=== PATIENT | female | born 1960 | race Caucasian/White ===

== ENCOUNTER 2018-10-30 14:23 | Inpatient (IN) ==
[2018-10-30] MEDS ORDERED: Acetaminophen 325 MG TABLET PO PRN (17:54)
[2018-10-30] MEDS ORDERED: Docusate Oral Soln 100 MG/10 ML UDC PO PRN (17:54)
[2018-10-30] MEDS ORDERED: Ipratropium/Albuterol Neb 3 ML ONE ×2 (18:11→22:59)
[2018-10-30] MEDS ORDERED: Nitroglycerin 0.4 MG TAB.SUBL SL PRN (18:59)
[2018-10-30] MEDS ORDERED: NON-FORMULARY MEDICATION 1 EACH EACH (Oxygen [Oxygen] 0 L) SCH (19:00)
[2018-10-30] MEDS: *HR* OxyCODONE/APAP 7.5/325 TABLET PO PRN (19:22)
--- NOTE | 2018-10-30 21:41 | Internal Med History&Physical ---
Date of Encounter: 10/30/18 Time of Encounter: 21:41 Assessment and Plan (1) Physical deconditioning Current visit: Yes Status: Acute Patient was transferred from [facility] to her facility because of physical deconditioning. She was admitted there with exacerbation of COPD. She was admitted just prior to [place]. She states her functional capacity is basically to the bedside commode is as far she could walk without getting extremely dyspneic. Therapies have been arranged. Diagnoses as below. (2) Acute exacerbation of chronic obstructive airways disease Current visit: Yes Status: Acute Patient has a chronic history of COPD and oxygen dependent. She has had recent exacerbation of COPD and treated with steroids and antibiotics and increase her oxygen and BiPAP. She is now here for therapies to help resume her ADLs and functional capacity. At this time she can only be on her feet far enough distance to get to the bedside commode. The plan will be to increase her acti vity level to the point where she is able to go home. She is maintaining her oxygen levels better now. Continue her current inhalers and nebulizer treatments as recommended by block machine operator. She is on low-dose prednisone 5 mg daily. (3) Chest pain Current visit: Yes Status: Acute Patient had an episode of chest pain at [facility] with negative workup. They did not feel she needed any further intervention or cardiac catheterization. She does relate that with eating she gets a sensation in her epigastric and lower chest area that is relieved with Tums. Not getting a history that this is cardiac. Will follow. Qualifiers: Chest pain type: unspecified Qualified Code(s): R07.9 - Chest pain, unspecified (4) Dental infection Current visit: Yes Status: Acute Patient has had problems with a molar and is in search of a dentist to have this removed. She or her will make the dental appointment. She continues with clindamycin. (5) Hyponatremia Current visit: Yes Status: Acute Mild hyponatremia which is improved. Looking back over her many labs she tends to run slightly hyponatremic. Likely she has reset hyponatremia. Will follow. (6) Leukocytosis Current visit: Yes Status: Acute Mild leukocytosis. Likely from her steroid use. I do not think we need to reculture or use further antibiotics. She could have a smoldering infection from her dental problem as well. Will follow. Qualifiers: Leukocytosis type: unspecified Qualified Code(s): D72.829 - Elevated white blood cell count, unspecified (7) Oral candidiasis Current visit: Yes Status: Acute History of oral candidiasis which now appears to be cleared. She continues with the Chlortrimazole (8) CAD (coronary artery disease) Current visit: Yes Status: Chronic History coronary artery disease. She had an episode of "chest pain" while at [facility] and negative workup with serial troponins. She does not have any recurrences of this. She was seen by cardiology and they did not feel she needed any intervention or catheterization beyond increasing her Imdur to 90 mg. Will follow. Currently no cardiac type symptoms Qualifiers: Coronary Disease-Associated Artery/Lesion type: [place] artery [place] vs. transplanted heart: [place] heart Associated angina: without angina Qualified Code(s): I25.10 - Atherosclerotic heart disease of [place] coronary artery without angina pectoris (9) Diabetes mellitus Current visit: Yes Status: Chronic History of diabetes mellitus. Her sugars were elevated with the IV steroids. Now her sugars are improved. She has had a fairly recent glycohemoglobin of 8.1%. We will continue to monitor with Accu-Cheks and use sliding scale if needed Qualifiers: Diabetes mellitus type: type 2 Diabetes mellitus longterm insulin use: without termite control service representative use Diabetes mellitus complication status: without complication Qualified Code(s): E11.9 - Type 2 diabetes mellitus without complications (10) Hypertension Current visit: Yes Status: Chronic Long-standing history of hypertension. Blood pressure appears be under good control. 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 She does this independently at home and she will have her bring in the infusion cannot to do as planned each week (12) GINA (obstructive sleep apnea) Current visit: Yes Status: Chronic History of sleep apnea and uses BiPAP and oxygen through the night. She uses BiPAP during the day if she becomes dyspneic. (13) Tobacco use Current visit: Yes Status: Chronic Chronically continues to use cigarettes. Her privately told me that she is up to 3 packs per day. She will no tobacco products while here. We will offer nicotine patch. Does not seem to be having withdrawal at the present time (14) DVT prophylaxis Current visit: Yes Status: Acute Because of her decreased mobility we will continue her DVT prophylaxis with [facility] Internal Medicine - H&P: HPI Chief complaint: I am here so I can breathe better before I go home Admitted From: Hospital to Hospital Transfer Plans for Post Hospital Care: Home History of present illness: Ms. Bailey is a 57 year old female with known history of CAD, oxygen dependent COPD and immune deficiency history is transferred to our facility from [facility] having spent about 10 days or more exacerbation of COPD. Patient was admitted there with history of exacerbation of her COPD. She is sputum production also noted placed on IV steroids and antibiotics. She was seen by block machine operator and her medications were adjusted. She has had difficulties with maintaining her ADLs and appropriate oxygen saturation. Her biggest complaint is that she is not able to walk or move more than just a few feet, to the bedside commode, without getting short of breath. Her sputum production has decreased. She has had no fevers or chills. She feels better but not able to go very far and has been basically bedbound. She stays with her BiPAP with oxygen through the night and uses as needed during the daytime. She is oxygen dependent all of the time She had an episode of chest pain was seen by cardiology. No major changes made in her medications. She ruled out. She has had fairly recent cardiac workup. They did not feel that this was significant angina or need further evaluation w ith catheterization. She does not have any ongoing chest pain. She does complain that when she eats she gets a fullness or discomfort in the epigastric lower chest area, but generally with her eating. Tums is helpful. Patient was admitted to rehab for therapy so she can improve her stamina and f unctional capacity before returning to home. Past Med Surg Social Fam HX - Past Medical History Medical history: asthma, COPD, coronary artery disease, diabetes, hyperlipidemia, hypertension, myocardial infarction, other Additional medical history: IGG Psychiatric history: anxiety, depression - Past Surgical History Surgical History: , herniorrhaphy, hysterectomy, knee replacement, other Additional surgical history: heart stents - Social History Smoking Status: Former smoker Smokeless Tobacco Status: No Alcohol use: unknown Drug use: none - Family History Paternal Grandfather Living Status: Hx Family Cardiac Disorders: Yes ([place]) Paternal Grandmother Adopted: No Living Status: Hx Family Cancer: Yes (Lung cancer) Mother Hx Family Cardiac Disorders: Yes (Heart disease and hypertension) Hx Family Cancer: Yes (leukemia, breast cancer) Hx Family Endocrine Disorder: Yes (Diabetes) Father Living Status: Hx Family Cardiac Disorders: Yes Hx Family Respiratory Disorders: Yes Hx Family Cancer: No Hx Family Endocrine Disorder: No Brother Living Status: Hx Family Cancer: Yes (unknown type cancer) Sister Living Status: Hx Family Cardiac Disorders: Yes (Heart disease) Hx Family Respiratory Disorders: Yes (COPD) Hx Family Cancer: Yes (leukemia) Hx Family Endocrine Disorder: Yes ("thyroid problems") Internal Medicine - H&P: Meds Aspirin 81 mg PO HS 07/06/15 [History] Cholecalciferol (Vitamin D3) [Vitamin D] 1,000 unit PO DAILY 07/06/15 [History] Clopidogrel Bisulfate [Plavix] 75 mg PO DAILY 07/06/15 [History] Guaifenesin [Mucinex] 600 mg PO BID 07/06/15 [History] Magnesium Oxide [Magnesium] 400 mg PO BID 07/06/15 [History] Nitroglycerin [Nitrostat] 0.4 mg SL [id number] PRN 07/06/15 [History] Roflumilast [Daliresp] 500 mcg PO HS 07/06/15 [History] Docusate Sodium [Colace] 250 mg PO DAILY PRN 07/11/15 [History] Pantoprazole Sodium [Protonix] 40 mg PO DAILY 07/11/15 [History] OxyCODONE/APAP 7.5/325 [Percocet 7.5/325 MG] 1 tab PO Q6HR PRN 06/11/16 [History] Ranolazine [Ranexa] 500 mg PO BID 06/11/16 [History] Ascorbic Acid [Vitamin C] 500 mg PO BID tablet 06/14/16 [Rx] Acetaminophen [Tylenol] 650 mg PO Q6HR PRN #0 tablet 08/31/16 [Rx] Sertraline [Zoloft] 50 mg PO HS #30 tablet 09/05/16 [Rx] Albuterol Neb [Proventil Neb] 2.5 mg IH Q4HR PRN 05/29/17 [History] Loratadine [Allergy Relief] 10 mg PO DAILY 05/29/17 [History] Niacin (24 HR) [Niaspan] 500 mg PO DAILY 05/29/17 [History] Potassium Chloride [Klor-Con 10] 10 meq PO DAILY 05/29/17 [History] EPINEPHrine [Epipen] 0.3 mg IM ONCE PRN 01/15/18 [History] Ferrous Sulfate 325 mg PO BID 01/15/18 [History] Immune Globulin, Gamma (IGG) [Privigen 10% 10 GM/100 ML] 35 units IJ QWEEK [History] Oxygen 2 - 5 l .ROUTE CONT #1 each 02/03/18 [Rx] Albuterol Sulfate [Ventolin Hfa] 2 puff IH Q4H PRN 07/15/18 [History] Fluticasone Propionate Nasal [Flonase] 2 spr NS DAILY 07/15/18 [History] Gabapentin [Neurontin] 300 mg PO TID 07/15/18 [History] Losartan Potassium [Cozaar] 50 mg PO DAILY 07/15/18 [History] Metformin HCl 1,000 mg PO BID 07/15/18 [History] Metoprolol Succinate [Toprol Xl] 50 mg PO HS 07/15/18 [History] Montelukast [Singulair] 10 mg PO HS 07/15/18 [History] Simvastatin [Zocor] 40 mg PO HS 07/15/18 [History] amLODIPine [Norvasc] 5 mg PO DAILY 07/15/18 [History] glipiZIDE [Glucotrol] 10 mg PO BIDWM 07/15/18 [History] Tiotropium [Spiriva] 1 puff IH DAILY 10/19/18 [History] Budesonide Neb [Pulmicort Neb] 0.5 mg IH BIDR inhsol 10/30/18 [Rx] Clindamycin [Cleocin] 450 mg PO Q8H 4 Days capsule 10/30/18 [Rx] Clotrimazole [Mycelex Faye] 10 mg MM 5XD faye 10/30/18 [Rx] Ipratropium/Albuterol Neb [Duoneb] 3 ml IH [id number] inhsol 10/30/18 [Rx] Isosorbide MONOnitrate (24 HR) [Imdur] 90 mg PO DAILY tab.er.24h 10/30/18 [Rx] Sodium Chloride/Aloe Nasal Gel [Swink Saline Nasal Gel] 1 appl NS Q2H PRN tube 10/30/18 [Rx] Theophylline Anhydrous [Theodur] 300 mg PO BID tab.er.12h 10/30/18 [Rx] predniSONE [PredniSONE] 5 mg PO DAILY 30 Days #30 tablet 10/30/18 [Rx] Allergy/AdvReac Type Severity Reaction Status Date / Time Penicillins Allergy Difficulty Verified 07/15/18 10:41 Breathing Sulfa (Sulfonamide Allergy Difficulty Verified 07/15/18 10:41 Antibiotics) Breathing sulfamethoxazole Allergy Difficulty Verified 07/15/18 10:41 [From Bactrim] Breathing trimethoprim [From Bactrim] Allergy Difficulty Verified 07/15/18 10:41 Breathing furosemide [From Lasix] AdvReac Dizziness Verified 07/15/18 10:41 - Constitutional Constitutional: weakness (Generalized weakness and dyspnea), no chills, no fever(s), no falls - EENT Eyes: no blurry vision Ears: no ear discharge, no ear pain Additional comments: She complains of a bad lower molar that she thinks needs pulled. She has had a sore throat. She has a history of having had an now being treated for oral candidiasis. She thinks it is under control. - Breasts Breasts: no pain - Cardiovascular Cardiovascular ROS IM: dyspnea, dyspnea on exertion (She states she gets short of breath going to the bedside commode.), no chest pain, no irregular heart rhythm, no palpitations, no syncope - Respiratory Respiratory: cough, dyspnea, dyspnea on exertion (She says she gets short of breath going to the bedside commode), wheezing, change in phlegm color - Gastrointestinal Additional comments: Patient has epigastric pain particularly after she has eaten. She "feels full" then she gets pain. She denies any "heartburn" in the chest or any reflux per se. - Genitourinary Genitourinary: no dysuria, no urinary incontinence, no urinary urgency, no vaginal discharge Menstruation: post menopausal - Musculoskeletal Musculoskeletal ROS IM: no back pain, no muscle weakness, no neck pain - Integumentary Additional comments: Multiple bruises on her abdomen as well as her arms - Neurological Neurological ROS: weakness (Generalized weakness and dyspnea.), no confusion, no focal weakness, no vertigo - Psychiatric Psychiatric: abnormal sleep pattern (She states she has a hard time going to sleep. She think she has tried Benadryl and melatonin.), no anxiety, no difficulty concentrating - Constitutional Vitals: Temp Pulse Resp BP Pulse Ox 97.7 F 87 19 131/69 91 10/30/18 19:45 10/30/18 19:45 10/30/18 19:45 10/30/18 19:45 10/30/18 19:45 General appearance: Present: A&O X 3, no acute distress, answers questions appropriately - ENT ENT exam: Present: mucous membranes moist, normal oropharynx (No shun or redness), TM's normal bilaterally Additional comments: She is missing some of her teeth. She has a tobacco stained lower molar that has a filling - Neck Neck exam general surgery: Absent: tenderness, nuchal rigidity, thyromegaly - Respiratory Additional comments: Markedly diminished breath sounds posteriorly but clear. Anteriorly mild end- expiratory wheeze. No crackles or rhonchi. No respiratory distress. She is wearing oxygen at 5 L per nasal cannula and using it orally - Cardiovascular Cardiovascular exam: Present: RRR, +S1, +S2, systolic murmur (1/6 systolic murmur) - GI/Abdominal GI/Abdominal exam: Present: soft. Absent: hepatomegaly, mass, pulsatile mass, tenderness Additional comments: Multiple bruises and Band-Aids on her abdomen from her Lovenox - Extremities Exam Extremities exam: Present: warm. Absent: calf tenderness, mottling, pedal edema, tenderness - Neurological Exam Neurological exam: Present: alert, oriented X3, no focal deficits - Psychiatric Psychiatric exam: Present: normal affect, normal mood - Skin Additional comments: Multiple areas of bruises particularly on her forearms as well as abdomen Internal Med - H&P Results - Labs CBC & Chem 7: 10/31/18 05:45
[2018-10-30] MEDS ORDERED: Dextrose Gel 15 GM/37.5 ML TUBE PO PRN ×2 (22:14)
[2018-10-30] MEDS ORDERED: D5% in Water 1,000 ML IVC PRN (22:14)
[2018-10-30] MEDS ORDERED: *HR* Dextrose 50 % in Water (Syg) 50 ML SYRINGE IVP PRN (22:14)
[2018-10-30] MEDS: Ipratropium/Albuterol Neb 3 ML IH SCH (23:00)
[2018-10-30] MEDS: Aspirin 81 MG TAB.CHEW PO SCH (23:42)
[2018-10-30] MEDS: Gabapentin 300 MG CAPSULE PO SCH (23:43)
[2018-10-30] MEDS: Magnesium Oxide 400 MG TABLET PO SCH (23:44)
[2018-10-30] MEDS: Ascorbic Acid 500 MG TABLET PO SCH (23:46)
[2018-10-30] MEDS: Metoprolol XL (24 HR) Succ 50 MG TAB.ER.24H PO SCH (23:46)
[2018-10-30] MEDS: Melatonin 3 MG TABLET PO PRN (23:46)
[2018-10-30] MEDS: Budesonide Neb 0.5 MG/2 ML IH SCH (23:49)
[2018-10-30] MEDS: *HR* Metformin 500 MG TABLET PO SCH (23:55)
[2018-10-31] MEDS ORDERED: Albuterol 2.5 MG/3 ML NEBULIZER IH PRN
[2018-10-31] MEDS: *HR* Enoxaparin 40 MG/0.4 ML SYRINGE SQ SCH (05:16)
[2018-10-31] MEDS: *HR* OxyCODONE/APAP 7.5/325 TABLET PO PRN ×3 (05:16→22:07)
[2018-10-31] MEDS: Ipratropium/Albuterol Neb 3 ML IH SCH ×4 (05:16→22:00)
[2018-10-31 06:27] LABS: BUN/Creatinine Ratio 16 (6-26); Blood Urea Nitrogen 10 mg/dL (6-20); Calcium 9.6 mg/dL (8.6-10.3); Carbon Dioxide 36 mEq/L (23-29); Chloride 91 mEq/L (98-107); Glucose 158 mg/dL (70-105); Osmolality,Calculated 274 (280-300); Potassium 3.7 mEq/L (3.5-5.1); Sodium 131 mEq/L (136-145); eGFR For Non-African Americans > 60 (> 60)
[2018-10-31] MEDS: Insulin LISPRO 300 UNITS/3 ML VIAL SQ SCH ×3 (08:25→16:38)
[2018-10-31] MEDS: Gabapentin 300 MG CAPSULE PO SCH ×3 (08:28→21:57)
[2018-10-31] MEDS: Niacin (24 HR) 500 MG TAB.ER.24H PO SCH (08:29)
[2018-10-31] MEDS: Ascorbic Acid 500 MG TABLET PO SCH ×2 (08:29→21:59)
[2018-10-31] MEDS: Isosorbide MONOnitrate (24 HR) 60 MG TAB.ER.24H PO SCH (08:29)
[2018-10-31] MEDS: *HR* GlipiZIDE 5 MG TABLET PO SCH ×2 (08:29→16:08)
[2018-10-31] MEDS: Cholecalciferol (D-3) 1,000 UNIT TABLET PO SCH (08:29)
[2018-10-31] MEDS: Loratadine 10 MG TABLET PO SCH (08:30)
[2018-10-31] MEDS: amLODIPine 5 MG TABLET PO SCH (08:30)
[2018-10-31] MEDS: predniSONE 5 MG TABLET PO SCH (08:30)
[2018-10-31] MEDS: *HR* Metformin 500 MG TABLET PO SCH ×2 (08:30→21:57)
[2018-10-31] MEDS: Magnesium Oxide 400 MG TABLET PO SCH ×2 (08:30→21:57)
[2018-10-31] MEDS: Budesonide Neb 0.5 MG/2 ML IH SCH ×2 (09:23→23:19)
--- NOTE | 2018-10-31 11:44 | Internal Med Progress Note ---
Date of Encounter: 10/31/18 Time of Encounter: 11:43 - Assessment and plan (1) Physical deconditioning Current Visit: Yes Status: Acute Assessment and plan: She has shown dramatic improvement in her functionality and ADLs. She has walked in the hallway and taking a shower. She requires higher oxygen concentration and frequent resting. Continue with her therapies. (2) Acute exacerbation of chronic obstructive airways disease Current Visit: Yes Status: Acute Assessment and plan: Continues to show improvement. Some rhonchi noted today. We will add Mucomyst. Overall improved (3) Chest pain Current Visit: Yes Status: Acute Assessment and plan: She gets a chest sensation when she eats, Tums is helpful. Doubt this is cardiac. Will follow. Qualifiers: Chest pain type: unspecified Qualified Code(s): R07.9 - Chest pain, unspecified (4) Dental infection Current Visit: Yes Status: Acute Assessment and plan: I spoke with her about getting her appointment with a local dentist to check about pulling her tooth appears to be painful possibly infected. She continues with her clindamycin. (5) Hyponatremia Current Visit: Yes Status: Acute Assessment and plan: Hyponatremia improved. We will follow. (6) Leukocytosis Current Visit: Yes Status: Acute Assessment and plan: Leukocytosis which is likely from her steroids. Will follow. No fever. Qualifiers: Leukocytosis type: unspecified Qualified Code(s): D72.829 - Elevated white blood cell count, unspecified (7) Oral candidiasis Current Visit: Yes Status: Acute Assessment and plan: No recurrence of oral candidiasis. (8) CAD (coronary artery disease) Current Visit: Yes Status: Chronic Assessment and plan: History of known CAD. No cardiac type chest pain. She was seen by cardiology at [place] and Imdur was increased. We will monitor how she does with increasing her activity level Qualifiers: Coronary Disease-Associated Artery/Lesion type: [place] artery [place] vs. transplanted heart: [place] heart Associated angina: without angina Qualified Code(s): I25.10 - Atherosclerotic heart disease of [place] coronary artery without angina pectoris (9) Diabetes mellitus Current Visit: Yes Status: Chronic Assessment and plan: Sugars are under reasonable control considering her prednisone use. Continue to monitor. Qualifiers: Diabetes mellitus type: type 2 Diabetes mellitus terminal gauger supervisor insulin use: without senior living use Diabetes mellitus complication status: without complication Qualified Code(s): E11.9 - Type 2 diabetes mellitus without complications (10) Hypertension Current Visit: Yes Status: Chronic Assessment and plan: Blood pressure is under good control. 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 She has walked in the hallway this morning, as taking a shower, and tolerating it better than she had expected. Still has some minor sputum production. No fever or chills. No cardiac type anginal chest pain. Still requires her BiPAP intermittently during the day. She says she was on "that makes smelling stuff" in her nebulizer treatments. Linda from respiratory and I discussed starting Mucomyst again - Constitutional Vitals: Temp Pulse Resp BP Pulse Ox 97.7 F 83 18 115/73 93 10/31/18 11:00 10/31/18 11:00 10/31/18 11:00 10/31/18 11:00 10/31/18 11:00 General appearance: Present: A&O X 3, no acute distress, answers questions appropriately - Respiratory Additional comments: Rhonchi noted posteriorly as well as anteriorly. Expiratory wheezes anteriorly. No respiratory distress. Saturations are appropriate with 5 L. - Cardiovascular Cardiovascular exam: Present: RRR, +S1, +S2, systolic murmur (1/6 systolic murmur) - Extremities Exam Extremities exam: Absent: calf tenderness, pedal edema, tenderness Internal Medicine: Result - Labs CBC & Chem 7: 10/31/18 05:45 Labs: BMP 10/31/18 05:45 Sodium 131 L Potassium 3.7 Chloride 91 L Carbon Dioxide 36 H BUN 10 Creatinine 0.61 Glucose 158 H Calcium 9.6 Labs have been reviewed. Sodium improved to 131. Chronically she has hyponatremia. Sugars are under relatively good control. Consult Discharge Plan - Plan Referrals: James Rushing MD [Primary Care Provider] -
[2018-10-31] MEDS: Ranolazine 500 MG TAB.ER.12H PO SCH ×3 (12:35→22:53)
[2018-10-31] MEDS: Acetylcysteine 10% 2 ML INHSOL IH SCH ×2 (16:00→22:00)
[2018-10-31] MEDS: Aspirin 81 MG TAB.CHEW PO SCH (21:57)
[2018-10-31] MEDS: (Roflumilast [Daliresp] 500 MCG) PO SCH ×2 (21:58)
[2018-10-31] MEDS: Metoprolol XL (24 HR) Succ 50 MG TAB.ER.24H PO SCH (21:58)
[2018-10-31] MEDS: Melatonin 3 MG TABLET PO PRN (23:18)
[2018-11-01] MEDS: Ipratropium/Albuterol Neb 3 ML IH SCH ×4 (06:07→20:47)
[2018-11-01] MEDS: Acetylcysteine 10% 2 ML INHSOL IH SCH ×3 (06:08→20:47)
[2018-11-01] MEDS: *HR* Enoxaparin 40 MG/0.4 ML SYRINGE SQ SCH (06:08)
[2018-11-01] MEDS: *HR* OxyCODONE/APAP 7.5/325 TABLET PO PRN ×2 (06:08→17:32)
--- NOTE | 2018-11-01 07:11 | Internal Med Progress Note ---
Date of Encounter: 11/01/18 Time of Encounter: 07:06 - Assessment and plan (1) Physical deconditioning Current Visit: Yes Status: Acute Assessment and plan: She continues to improve her function and stamina. Continue with her therapies. (2) Acute exacerbation of chronic obstructive airways disease Current Visit: Yes Status: Acute Assessment and plan: Her COPD exacerbation is improving. She is able to exert herself more and havi ng less difficulties. Her saturations still drop into the low 80s when she moves too much. Has good recovery to the 90s. Continues with BiPAP at night with oxygen. Continues BiPAP during the day if needed. Small amount of sputum production. She thinks the Mucomyst has been helpful and we will continue. Continue with her nebulizer and MDIs, oxygen and prednisone 5 mg (3) Chest pain Current Visit: Yes Status: Acute Assessment and plan: She still has a discomfort in her chest when she eats. It does not happen with exertion. Tums is helpful. This likely GI etiology. If continues will need to consider upper GI evaluation but no red flags such as melena, hematochezia, anemia, nausea vomiting etc. Qualifiers: Chest pain type: unspecified Qualified Code(s): R07.9 - Chest pain, unspecified (4) Dental infection Current Visit: Yes Status: Acute Assessment and plan: She has an appointment with Dr. Lee for next Sunday for dental e valuation. We will see whether she is able to get to that appointment or not. Continues with clindamycin (5) Hyponatremia Current Visit: Yes Status: Acute Assessment and plan: Mild hyponatremia now improved. We will follow. (6) Leukocytosis Current Visit: Yes Status: Acute Assessment and plan: History mild leukocytosis likely from her steroids. Will follow. Qualifiers: Leukocytosis type: unspecified Qualified Code(s): D72.829 - Elevated white blood cell count, unspecified (7) Oral candidiasis Current Visit: Yes Status: Acute Assessment and plan: No recurrence of her oral candidiasis. She continues with her Chlortrimazole. (8) CAD (coronary artery disease) Current Visit: Yes Status: Chronic Assessment and plan: Known history of CAD without angina or CHF currently. Qualifiers: Coronary Disease-Associated Artery/Lesion type: [place] artery [place] vs. transplanted heart: [place] heart Associated angina: without angina Qualified Code(s): I25.10 - Atherosclerotic heart disease of [place] coronary artery without angina pectoris (9) Diabetes mellitus Current Visit: Yes Status: Chronic Assessment and plan: Sugars are under reasonable control. We will use sliding scale if elevated. Qualifiers: Diabetes mellitus type: type 2 Diabetes mellitus prison insulin use: without prison use Diabetes mellitus complication status: without complication Qualified Code(s): E11.9 - Type 2 diabetes mellitus without complications (10) Hypertension Current Visit: Yes Status: Chronic Assessment and plan: Blood pressure is under good control. 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 (12) GINA (obstructive sleep apnea) Current Visit: Yes Status: Chronic Assessment and plan: Continues with her BiPAP with oxygen at nighttime, during the day as needed (13) Tobacco use Current Visit: Yes Status: Chronic (14) DVT prophylaxis Current Visit: Yes Status: Acute Assessment and plan: Continues with Lovenox for DVT prophylaxis because of her decreased activity level - Subjective Interval history: Patient feels that she is getting better. She ambulated in the hallway in the morning yesterday, took a shower, and then continue with ambulation and therapy walking to the therapy unit and back. She denies a cardiac type chest pain with exertion. She still has a sensation in the epigastric and lower chest area when she eats, Tums is helpful for this. No melena or hematochezia. No nausea or vomiting. She still has some sputum production which is yellowish at times. She uses her BiPAP and oxygen at nighttime, needs it during the day intermittently. Appetite has been good. Bowels have been moving. She is working on increasing her endurance - Constitutional Vitals: Temp Pulse Resp BP Pulse Ox 98.4 F 77 16 135/77 93 10/31/18 23:44 10/31/18 23:44 10/31/18 23:44 10/31/18 23:44 10/31/18 23:44 General appearance: Present: A&O X 3, no acute distress, answers questions appr opriately - Respiratory Additional comments: Decreased breath sounds throughout, a few rhonchi are heard anteriorly, partially clears with cough. No obvious wheezing heard this morning. Sitting upright in bed wearing her oxygen and in no respiratory distress. Able to talk without dyspnea. - Cardiovascular Cardiovascular exam: Present: RRR, +S1, +S2, systolic murmur (1/6 systolic murmur at the left sternal border) - GI/Abdominal GI/Abdominal exam: Present: soft. Absent: tenderness - Extremities Exam Extremities exam: Absent: calf tenderness, pedal edema, tenderness Internal Medicine: Result - Labs CBC & Chem 7: 10/31/18 05:45 Consult Discharge Plan - Plan Referrals: James Rushing MD [Primary Care Provider] -
[2018-11-01] MEDS: Insulin LISPRO 300 UNITS/3 ML VIAL SQ SCH ×3 (08:55→17:29)
[2018-11-01] MEDS: Gabapentin 300 MG CAPSULE PO SCH ×3 (09:07→20:05)
[2018-11-01] MEDS: Ranolazine 500 MG TAB.ER.12H PO SCH ×2 (09:09→20:06)
[2018-11-01] MEDS: *HR* Metformin 500 MG TABLET PO SCH ×2 (09:10→20:05)
[2018-11-01] MEDS: Cholecalciferol (D-3) 1,000 UNIT TABLET PO SCH (09:10)
[2018-11-01] MEDS: amLODIPine 5 MG TABLET PO SCH (09:10)
[2018-11-01] MEDS: Magnesium Oxide 400 MG TABLET PO SCH ×2 (09:10→20:06)
[2018-11-01] MEDS: predniSONE 5 MG TABLET PO SCH (09:11)
[2018-11-01] MEDS: Ascorbic Acid 500 MG TABLET PO SCH ×2 (09:11→20:06)
[2018-11-01] MEDS: Niacin (24 HR) 500 MG TAB.ER.24H PO SCH (09:11)
[2018-11-01] MEDS: Loratadine 10 MG TABLET PO SCH (09:11)
[2018-11-01] MEDS: *HR* GlipiZIDE 5 MG TABLET PO SCH ×2 (09:12→15:49)
[2018-11-01] MEDS: Isosorbide MONOnitrate (24 HR) 60 MG TAB.ER.24H PO SCH (09:12)
[2018-11-01] MEDS: Budesonide Neb 0.5 MG/2 ML IH SCH ×2 (11:00→21:29)
[2018-11-01] MEDS: (Roflumilast [Daliresp] 500 MCG) PO SCH (19:47)
[2018-11-01] MEDS: Aspirin 81 MG TAB.CHEW PO SCH (20:06)
[2018-11-01] MEDS: Metoprolol XL (24 HR) Succ 50 MG TAB.ER.24H PO SCH (20:06)
[2018-11-01] MEDS: Melatonin 3 MG TABLET PO PRN (20:46)
[2018-11-02] MEDS: *HR* Enoxaparin 40 MG/0.4 ML SYRINGE SQ SCH (06:18)
[2018-11-02] MEDS: Acetylcysteine 10% 2 ML INHSOL IH SCH ×2 (06:19→16:15)
[2018-11-02] MEDS: Ipratropium/Albuterol Neb 3 ML IH SCH ×4 (06:19→22:12)
[2018-11-02] MEDS: *HR* GlipiZIDE 5 MG TABLET PO SCH ×2 (08:31→17:09)
[2018-11-02] MEDS: Insulin LISPRO 300 UNITS/3 ML VIAL SQ SCH ×3 (08:31→17:12)
[2018-11-02] MEDS: *HR* Metformin 500 MG TABLET PO SCH ×2 (08:32→22:17)
[2018-11-02] MEDS: Loratadine 10 MG TABLET PO SCH (08:32)
[2018-11-02] MEDS: Isosorbide MONOnitrate (24 HR) 60 MG TAB.ER.24H PO SCH (08:32)
[2018-11-02] MEDS: Gabapentin 300 MG CAPSULE PO SCH ×3 (08:32→22:19)
[2018-11-02] MEDS: Magnesium Oxide 400 MG TABLET PO SCH ×2 (08:32→22:18)
[2018-11-02] MEDS: amLODIPine 5 MG TABLET PO SCH (08:33)
[2018-11-02] MEDS: Niacin (24 HR) 500 MG TAB.ER.24H PO SCH (08:33)
[2018-11-02] MEDS: Ascorbic Acid 500 MG TABLET PO SCH ×2 (08:33→22:16)
[2018-11-02] MEDS: Ranolazine 500 MG TAB.ER.12H PO SCH ×2 (08:33→22:16)
[2018-11-02] MEDS: Cholecalciferol (D-3) 1,000 UNIT TABLET PO SCH (08:33)
[2018-11-02] MEDS: predniSONE 5 MG TABLET PO SCH (08:33)
[2018-11-02] MEDS: *HR* OxyCODONE/APAP 7.5/325 TABLET PO PRN ×2 (08:34→15:18)
[2018-11-02] MEDS: Budesonide Neb 0.5 MG/2 ML IH SCH ×2 (09:16→22:18)
--- NOTE | 2018-11-02 13:16 | Internal Med Progress Note ---
Date of Encounter: 11/02/18 Time of Encounter: 13:13 - Assessment and plan (1) Hospital-acquired pneumonia Current Visit: No Status: Resolved Assessment and plan: This is improved but has left her weak and with respiratory insufficiency on her chronic lung disease. Hopefully, this will continue to improve and she will strengthen, with time. (2) Coronary artery disease Current Visit: No Status: Chronic Assessment and plan: This is clinically stable without signs or symptoms, currently. Qualifiers: Coronary Disease-Associated Artery/Lesion type: [place] artery [place] vs. transplanted heart: [place] heart Associated angina: without angina Qualified Code(s): I25.10 - Atherosclerotic heart disease of [place] coronary artery without angina pectoris (3) Immunodeficiency Current Visit: No Status: Chronic Assessment and plan: This is currently stable and the patient is due for another immunoglobulin injection which she will do on her own, in about 2 days. (4) Hypertension Current Visit: Yes Status: Chronic Assessment and plan: Clinically stable and adequately controlled. Qualifiers: Hypertension type: essential hypertension Qualified Code(s): I10 - Essential (primary) hypertension (5) Sleep apnea Current Visit: No Status: Chronic Assessment and plan: Treated with BiPAP per home settings. She also occasionally uses this as needed for dyspnea during the day but has not had to use the unit today, at all. Qualifiers: Sleep apnea type: obstructive Qualified Code(s): G47.33 - Obstructive sleep apnea (adult) (pediatric) (6) Thrush of mouth and esophagus Current Visit: No Status: Acute Assessment and plan: Because of her esophageal symptoms, we will resume Mycelex troches and add Diflucan for 3 days. She is fine with this plan. (7) Diabetes mellitus Current Visit: Yes Status: Chronic Assessment and plan: Clinically stable and will continue to follow. Qualifiers: Diabetes mellitus type: type 2 Diabetes mellitus mcfp insulin use: without mcfp use Diabetes mellitus complication status: without complication Qualified Code(s): E11.9 - Type 2 diabetes mellitus without complications (8) Leukocytosis Current Visit: Yes Status: Acute Assessment and plan: This is attributed to steroids. Will recheck in a couple of days. Qualifiers: Leukocytosis type: unspecified Qualified Code(s): D72.829 - Elevated white blood cell count, unspecified - Subjective Interval history: Patient is not concerned about her progress. Contralaterally, she feels like she is progressing well. She has a higher level of oxygen than she uses at home. She states that she uses 1.5-2.5 L/m by nasal cannula, at home. However, she is on 5 L/m here. She would like to see the spleen but she desaturates with activity. Bowels and bladder are moving well. She has no other acute issues. She does have problems with heartburn with each meal. She would like to have her PPI earlier in the morning and I mentioned the possibility of candidal esophagitis. Because of recurrent throat symptoms, her Mycelex troches were resumed last night. Will also treat with Diflucan and I discussed this with her. Patient has no complaint of chest discomfort, dyspnea, orthopnea, palpitations, nausea or vomiting, constipation or diarrhea, other changes in bowel habits, difficulty with urination, rash or itching, or other new complaints, except as mentioned above. Review of systems is otherwise negative. I discussed management of her care with nursing staff. - Constitutional Vitals: Temp Pulse Resp BP Pulse Ox 97.6 F 72 17 120/71 97 11/02/18 07:27 11/02/18 07:27 11/02/18 07:27 11/02/18 07:27 11/02/18 07:27 Exam: Examination: (Except as mentioned above): General: In no apparent distress. Alert and oriented 3. Nondiaphoretic. Mouth: She has minimal changes on the posterior tongue consistent with thrush. However, none on throat, etc. She has complete upper and lower dentures. Head: Atraumatic and normocephalic. Respiratory: No use of accessory muscles. Lungs are clear throughout. Normal airflow. Cardiovascular: Regular rate and rhythm without murmur appreciated. Abdomen: Bowel sounds are normal. No hepatosplenomegaly mass or tenderness appreciated. Obese and therefore difficult to palpate deeply. Patient is examined upright in chair and this also limits exam. Extremities: No cyanosis clubbing or edema. Skin: Warm and non-diaphoretic with no new lesions noted. She has rather marked ecchymoses at the dorsal surface of her left forearm. Lesions. Internal Medicine: Result - Labs CBC & Chem 7: 10/31/18 05:45 Consult Discharge Plan - Plan Referrals: James Rushing MD [Primary Care Provider] -
[2018-11-02] MEDS: Fluconazole 100 MG TABLET PO SCH (15:19)
[2018-11-02] MEDS: Aspirin 81 MG TAB.CHEW PO SCH (22:17)
[2018-11-02] MEDS: Melatonin 3 MG TABLET PO PRN (22:17)
[2018-11-02] MEDS: Metoprolol XL (24 HR) Succ 50 MG TAB.ER.24H PO SCH (22:18)
[2018-11-02] MEDS: (Roflumilast [Daliresp] 500 MCG) PO SCH (22:20)
[2018-11-03] MEDS: Acetylcysteine 10% 2 ML INHSOL IH SCH ×4 (01:18→23:43)
[2018-11-03] MEDS: *HR* OxyCODONE/APAP 7.5/325 TABLET PO PRN ×3 (03:00→18:08)
[2018-11-03] MEDS: Ipratropium/Albuterol Neb 3 ML IH SCH ×4 (04:07→20:21)
[2018-11-03] MEDS: *HR* Enoxaparin 40 MG/0.4 ML SYRINGE SQ SCH (05:24)
[2018-11-03] MEDS: Niacin (24 HR) 500 MG TAB.ER.24H PO SCH (08:20)
[2018-11-03] MEDS: Cholecalciferol (D-3) 1,000 UNIT TABLET PO SCH (08:20)
[2018-11-03] MEDS: *HR* GlipiZIDE 5 MG TABLET PO SCH ×2 (08:20→17:52)
[2018-11-03] MEDS: predniSONE 5 MG TABLET PO SCH (08:21)
[2018-11-03] MEDS: Gabapentin 300 MG CAPSULE PO SCH ×3 (08:21→20:26)
[2018-11-03] MEDS: Isosorbide MONOnitrate (24 HR) 60 MG TAB.ER.24H PO SCH (08:21)
[2018-11-03] MEDS: Loratadine 10 MG TABLET PO SCH (08:21)
[2018-11-03] MEDS: Magnesium Oxide 400 MG TABLET PO SCH ×2 (08:21→20:25)
[2018-11-03] MEDS: Ascorbic Acid 500 MG TABLET PO SCH ×2 (08:22→20:24)
[2018-11-03] MEDS: Insulin LISPRO 300 UNITS/3 ML VIAL SQ SCH ×2 (08:22→17:53)
[2018-11-03] MEDS: *HR* Metformin 500 MG TABLET PO SCH ×2 (08:22→20:28)
[2018-11-03] MEDS: amLODIPine 5 MG TABLET PO SCH (08:22)
[2018-11-03] MEDS: Fluconazole 100 MG TABLET PO SCH (08:22)
[2018-11-03] MEDS: Ranolazine 500 MG TAB.ER.12H PO SCH ×2 (08:25→20:24)
[2018-11-03] MEDS: Fluticasone Propionate Nasal 50 MCG/SPRAY BOTTLE NS SCH ×2 (08:25→10:01)
[2018-11-03] MEDS: Budesonide Neb 0.5 MG/2 ML IH SCH ×2 (09:23→20:27)
--- NOTE | 2018-11-03 17:21 | Internal Med Progress Note ---
Date of Encounter: 11/03/18 Time of Encounter: 15:30 - Assessment and plan (1) Hospital-acquired pneumonia Current Visit: No Status: Resolved Assessment and plan: We will continue supportive care and try to wean oxygen as she improves, symptomatically. (2) Coronary artery disease Current Visit: No Status: Chronic Assessment and plan: No current findings, symptoms, or signs. Qualifiers: Coronary Disease-Associated Artery/Lesion type: [place] artery [place] vs. transplanted heart: [place] heart Associated angina: without angina Qualified Code(s): I25.10 - Atherosclerotic heart disease of [place] coronary artery without angina pectoris (3) Immunodeficiency Current Visit: No Status: Chronic Assessment and plan: Currently stable and will defer to patient and primary care physician for continued treatment. (4) Hypertension Current Visit: Yes Status: Chronic Assessment and plan: Controlled. Qualifiers: Hypertension type: essential hypertension Qualified Code(s): I10 - E ssential (primary) hypertension (5) Sleep apnea Current Visit: No Status: Chronic Assessment and plan: Controlled with BiPAP per home settings. Qualifiers: Sleep apnea type: obstructive Qualified Code(s): G47.33 - Obstructive sleep apnea (adult) (pediatric) (6) Thrush of mouth and esophagus Current Visit: No Status: Acute Assessment and plan: She is receiving Mycelex troches as well as 3 days of Diflucan oral. Hopefully, this will take care of any thrush causing esophageal swallowing symptoms. (7) Diabetes mellitus Current Visit: Yes Status: Chronic Assessment and plan: Clinically stable and will continue current regimen and sliding-scale insulin. Qualifiers: Diabetes mellitus type: type 2 Diabetes mellitus longterm insulin use: without intermodal dispatcher use Diabetes mellitus complication status: without complication Qualified Code(s): E11.9 - Type 2 diabetes mellitus without complications (8) Leukocytosis Current Visit: Yes Status: Acute Assessment and plan: To be rechecked, tomorrow. Qualifiers: Leukocytosis type: unspecified Qualified Code(s): D72.829 - Elevated white blood cell count, unspecified - Subjective Interval history: The patient is feeling like she is continuing to progress. She is less short of breath with exertion although this persists. She has no cough or dyspnea at rest. She feels that she is pleased with therapy progress, as well. Patient has no complaint of chest discomfort, dyspnea, orthopnea, palpitations, nausea or vomiting, constipation or diarrhea, other changes in bowel habits, difficulty with urination, rash or itching, or other new complaints, except as mentioned above. Review of systems is otherwise negative. I discussed management of her care with nursing staff. - Constitutional Vitals: Temp Pulse Resp BP Pulse Ox 97.5 F L 76 19 126/83 90 11/03/18 09:16 11/03/18 09:16 11/03/18 15:56 11/03/18 09:16 11/03/18 15:56 Exam: Examination: (Except as mentioned above): General: In no apparent distress. Alert and oriented 3. Nondiaphoretic. Head: Atraumatic and normocephalic. Respiratory: No use of accessory muscles. Lungs are almost totally clear throughout. She has an occasional and expiratory wheeze. Normal airflow. Cardiovascular: Regular rate and rhythm without murmur appreciated. Abdomen: Bowel sounds are normal. No hepatosplenomegaly mass or tenderness appreciated. Obese and therefore difficult to palpate deeply. Extremities: No cyanosis clubbing or edema. Skin: Warm and non-diaphoretic with no new lesions noted. Internal Medicine: Result - Labs CBC & Chem 7: 10/31/18 05:45 Consult Discharge Plan - Plan Referrals: James Rushing MD [Primary Care Provider] -
[2018-11-03] MEDS: Metoprolol XL (24 HR) Succ 50 MG TAB.ER.24H PO SCH (20:26)
[2018-11-03] MEDS: Melatonin 3 MG TABLET PO PRN (20:27)
[2018-11-03] MEDS: Aspirin 81 MG TAB.CHEW PO SCH (20:27)
[2018-11-03] MEDS: (Roflumilast [Daliresp] 500 MCG) PO SCH (20:28)
[2018-11-04] MEDS: *HR* OxyCODONE/APAP 7.5/325 TABLET PO PRN ×4 (00:05→20:53)
[2018-11-04] MEDS: Ipratropium/Albuterol Neb 3 ML IH SCH ×4 (06:30→20:54)
[2018-11-04] MEDS: Acetylcysteine 10% 2 ML INHSOL IH SCH ×3 (06:30→20:55)
[2018-11-04] MEDS: *HR* Enoxaparin 40 MG/0.4 ML SYRINGE SQ SCH (06:35)
--- NOTE | 2018-11-04 07:16 | Internal Med Progress Note ---
Date of Encounter: 11/04/18 Time of Encounter: 07:04 - Assessment and plan (1) Physical deconditioning Current Visit: Yes Status: Acute Assessment and plan: She is showing improvement in her functional capacity and less respiratory symptoms. Continue with her therapies. (2) Acute exacerbation of chronic obstructive airways disease Current Visit: Yes Status: Acute Assessment and plan: Continues to improve for a pulmonary point of view. Low dose prednisone. Continues with aggressive aerosol and MDI treatments. Still requiring 5 L of oxygen per nasal cannula to maintain saturations in the low 90s. Not requiring BiPAP during the day. (3) Chest pain Current Visit: Yes Status: Acute Assessment and plan: No cardiac type chest pain. Her reflux symptoms/GERD symptoms are much improved with resuming the Chlortrimazole troches and starting Diflucan Qualifiers: Chest pain type: unspecified Qualified Code(s): R07.9 - Chest pain, unspecified (4) Dental infection Current Visit: Yes Status: Acute (5) Hyponatremia Current Visit: Yes Status: Acute Assessment and plan: Improved and we will recheck this week. (6) Leukocytosis Current Visit: Yes Status: Acute Qualifiers: Leukocytosis type: unspecified Qualified Code(s): D72.829 - Elevated white blood cell count, unspecified (7) Oral candidiasis Current Visit: Yes Status: Acute Assessment and plan: No oral candidiasis reported now, but likely esophageal candidiasis with pain with eating. Improved with the Chlortrimazole troches and starting Diflucan. Discussed indications for EGD when she is more physically stable. (8) CAD (coronary artery disease) Current Visit: Yes Status: Chronic Assessment and plan: No angina or CHF noted. Qualifiers: Coronary Disease-Associated Artery/Lesion type: [place] artery [place] vs. transplanted heart: [place] heart Associated angina: without angina Qualified Code(s): I25.10 - Atherosclerotic heart disease of [place] coronary artery without angina pectoris (9) Diabetes mellitus Current Visit: Yes Status: Chronic Assessment and plan: Sugars are under good control and her Accu-Cheks have been decreased to twice a day. 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 (12) GINA (obstructive sleep apnea) Current Visit: Yes Status: Chronic (13) Tobacco use Current Visit: Yes Status: Chronic (14) DVT prophylaxis Current Visit: Yes Status: Acute - Subjective Interval history: Patient thinks that she is getting better, but slowly. Still requiring 5 L per nasal cannula. This weekend, even without therapy on Sunday, she was able to ambulate in the hallway and do some exercises. She denies any cardiac symptoms. No major exacerbation of her breathing. The "heartburn" she states is better as far as coming up into her chest. Still has some lower chest discomfort when eating. (The clotrimazole troches were restarted and Diflucan was initiated in case this is esophageal candidiasis. ) She has had no melena or hematochezia. No bowel complaints or abdominal pain in between meals. - Constitutional Vitals: Temp Pulse Resp BP Pulse Ox 97.7 F 76 17 121/70 92 11/03/18 19:16 11/03/18 19:16 11/03/18 19:16 11/03/18 23:41 11/03/18 23:41 General appearance: Present: A&O X 3, no acute distress, answers questions appropriately - Respiratory Additional comments: Rare scattered end expiratory wheezes posteriorly. End expiratory wheeze left anterior upper lung field. No rhonchi today. No respiratory distress. - Cardiovascular Cardiovascular exam: Present: RRR, +S1, +S2, systolic murmur (1/6 systolic murmur) - GI/Abdominal GI/Abdominal exam: Present: soft. Absent: mass, tenderness - Extremities Exam Extremities exam: Absent: calf tenderness, pedal edema, tenderness Internal Medicine: Result - Labs CBC & Chem 7: 10/31/18 05:45 Labs: Blood sugars have been under good control by Accu-Chek in the past couple of days Consult Discharge Plan - Plan Referrals: James Rushing MD [Primary Care Provider] -
[2018-11-04] MEDS: Insulin LISPRO 300 UNITS/3 ML VIAL SQ SCH ×2 (09:34→17:16)
[2018-11-04] MEDS: *HR* GlipiZIDE 5 MG TABLET PO SCH ×2 (09:35→17:16)
[2018-11-04] MEDS: *HR* Metformin 500 MG TABLET PO SCH ×2 (09:36→20:09)
[2018-11-04] MEDS: Fluticasone Propionate Nasal 50 MCG/SPRAY BOTTLE NS SCH (09:37)
[2018-11-04] MEDS: Niacin (24 HR) 500 MG TAB.ER.24H PO SCH (09:37)
[2018-11-04] MEDS: predniSONE 5 MG TABLET PO SCH (09:38)
[2018-11-04] MEDS: Fluconazole 100 MG TABLET PO SCH (09:38)
[2018-11-04] MEDS: Ranolazine 500 MG TAB.ER.12H PO SCH ×2 (09:38→20:08)
[2018-11-04] MEDS: Loratadine 10 MG TABLET PO SCH (09:38)
[2018-11-04] MEDS: amLODIPine 5 MG TABLET PO SCH (09:38)
[2018-11-04] MEDS: Magnesium Oxide 400 MG TABLET PO SCH ×2 (09:38→20:09)
[2018-11-04] MEDS: Cholecalciferol (D-3) 1,000 UNIT TABLET PO SCH (09:38)
[2018-11-04] MEDS: Isosorbide MONOnitrate (24 HR) 60 MG TAB.ER.24H PO SCH (09:39)
[2018-11-04] MEDS: Gabapentin 300 MG CAPSULE PO SCH ×3 (09:39→20:09)
[2018-11-04] MEDS: Ascorbic Acid 500 MG TABLET PO SCH ×2 (09:39→20:09)
[2018-11-04] MEDS: Budesonide Neb 0.5 MG/2 ML IH SCH ×2 (10:21→21:32)
[2018-11-04] MEDS ORDERED: IMMUNE GLOBULIN SQ SCH (19:20)
[2018-11-04] MEDS: Aspirin 81 MG TAB.CHEW PO SCH (20:08)
[2018-11-04] MEDS: Melatonin 3 MG TABLET PO PRN (20:08)
[2018-11-04] MEDS: Metoprolol XL (24 HR) Succ 50 MG TAB.ER.24H PO SCH (20:09)
[2018-11-04] MEDS: (Roflumilast [Daliresp] 500 MCG) PO SCH (20:10)
[2018-11-05] MEDS: *HR* OxyCODONE/APAP 7.5/325 TABLET PO PRN ×3 (03:04→20:04)
[2018-11-05] MEDS: Ipratropium/Albuterol Neb 3 ML IH SCH ×4 (03:04→20:09)
[2018-11-05] MEDS: *HR* Enoxaparin 40 MG/0.4 ML SYRINGE SQ SCH (05:48)
[2018-11-05 05:57] LABS: Basophils # 0.1 K/mcL (0.0-0.2); Basophils % 0.6 %; Eosinophils # 0.3 K/mcL (0.0-0.6); Eosinophils % 1.8 %; Lymphocytes # 1.7 K/mcL (0.6-4.6); Lymphocytes % 10.7 %; Mean Corpuscular HGB Conc 35.1 g/dL (31.6-35.5); Mean Corpuscular Hemoglobin 32.9 pg (28.0-33.3); Mean Corpuscular Volume 93.7 fL (83.0-100.0); Mean Platelet Volume 8.9 fL (9.4-12.4); Monocytes # 1.8 K/mcL (0.0-1.3); Monocytes % 10.9 %; Neutrophils # 12.2 K/mcL (1.6-8.9); Platelet Count 229 K/mcL (140-400); Red Blood Count 3.95 M/mcL (3.82-4.97); Red Cell Distribution Width 13.2 % (11.5-14.5)
[2018-11-05] MEDS: Acetylcysteine 10% 2 ML INHSOL IH SCH ×3 (06:52→21:58)
[2018-11-05 07:32] LABS: BUN/Creatinine Ratio 14 (6-26); Blood Urea Nitrogen 8 mg/dL (6-20); Calcium 8.7 mg/dL (8.6-10.3); Carbon Dioxide 29 mEq/L (23-29); Chloride 83 mEq/L (98-107); Glucose 120 mg/dL (70-105); Magnesium 1.7 mg/dL (1.6-2.6); Osmolality,Calculated 246 (280-300); Potassium 4.4 mEq/L (3.5-5.1); Sodium 118 mEq/L (136-145); eGFR For Non-African Americans > 60 (> 60)
[2018-11-05] MEDS: Insulin LISPRO 300 UNITS/3 ML VIAL SQ SCH ×2 (07:56→17:16)
[2018-11-05] MEDS: Fluticasone Propionate Nasal 50 MCG/SPRAY BOTTLE NS SCH (08:10)
[2018-11-05] MEDS: Ranolazine 500 MG TAB.ER.12H PO SCH ×2 (08:11→20:02)
[2018-11-05] MEDS: Cholecalciferol (D-3) 1,000 UNIT TABLET PO SCH (08:12)
[2018-11-05] MEDS: Fluconazole 100 MG TABLET PO SCH (08:12)
[2018-11-05] MEDS: Gabapentin 300 MG CAPSULE PO SCH ×3 (08:12→20:01)
[2018-11-05] MEDS: Niacin (24 HR) 500 MG TAB.ER.24H PO SCH (08:12)
[2018-11-05] MEDS: Loratadine 10 MG TABLET PO SCH (08:12)
[2018-11-05] MEDS: amLODIPine 5 MG TABLET PO SCH (08:12)
[2018-11-05] MEDS: Isosorbide MONOnitrate (24 HR) 60 MG TAB.ER.24H PO SCH (08:13)
[2018-11-05] MEDS: Magnesium Oxide 400 MG TABLET PO SCH ×2 (08:13→20:01)
[2018-11-05] MEDS: Ascorbic Acid 500 MG TABLET PO SCH ×2 (08:13→20:03)
[2018-11-05] MEDS: predniSONE 5 MG TABLET PO SCH (08:14)
[2018-11-05] MEDS: *HR* GlipiZIDE 5 MG TABLET PO SCH ×2 (08:14→17:16)
[2018-11-05] MEDS: *HR* Metformin 500 MG TABLET PO SCH ×2 (08:14→20:00)
[2018-11-05] MEDS: Budesonide Neb 0.5 MG/2 ML IH SCH ×2 (09:10→20:09)
--- NOTE | 2018-11-05 12:10 | Internal Medicine Consult Note ---
Date of Encounter: 11/05/18 Time of Encounter: 12:07 - Assessment and plan (1) Hospital-acquired pneumonia Current Visit: No Status: Resolved Assessment and plan: This is not acute and I do not feel this caused SIADH or is the reason for her hyponatremia. (2) Coronary artery disease Current Visit: No Status: Chronic Assessment and plan: Clinically stable without signs or symptoms. Qualifiers: Coronary Disease-Associated Artery/Lesion type: [place] artery [place] vs. 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 (4) Hypertension Current Visit: Yes Status: Chronic Assessment and plan: Clinically stable. If she had a fluid excess intravascularly, we would expect that she will have a rise in her blood pressure. Qualifiers: Hypertension type: essential hypertension Qualified Code(s): I10 - Essential (primary) hypertension (5) Sleep apnea Current Visit: No Status: Chronic Assessment and plan: She is using BiPAP with this. Qualifiers: Sleep apnea type: obstructive Qualified Code(s): G47.33 - Obstructive sleep apnea (adult) (pediatric) (6) Thrush of mouth and esophagus Current Visit: No Status: Acute Assessment and plan: She is on her third day of Diflucan for same. This should not cause hyponatremia or pseudohyponatremia. (7) Diabetes mellitus Current Visit: Yes Status: Chronic Assessment and plan: The sugar is under mild to moderate control and the levels have not been high enough to cause pseudohyponatremia based on hyperglycemia. Qualifiers: Diabetes mellitus type: type 2 Diabetes mellitus rat exterminator insulin use: without long-term use Diabetes mellitus complication status: without complication Qualified Code(s): E11.9 - Type 2 diabetes mellitus without complications (8) Leukocytosis Current Visit: Yes Status: Acute Assessment and plan: Stable and possibly related to her underlying condition/medications. Qualifiers: Leukocytosis type: unspecified Qualified Code(s): D72.829 - Elevated white blood cell count, unspecified (9) Hyponatremia Current Visit: Yes Status: Acute Assessment and plan: I suspect pseudohyponatremia but this is a diagnosis of exclusion. The patient has history of this and has some question of SIADH. I agree with fluid restriction for now as her calculated osmolarity is still low at 246. I would recommend that this be reassessed and Dr. Rushing has planned to do so, this afternoon. If it is still low or old or mildly improved, I would recheck tomorrow. Hopefully this is pseudohyponatremia from immunoglobulin G. I doubt that this is delusional from excessive water intake but we will respond as if this is SIADH or actual for patient safety. If she remains at a low sodium this evening or tomorrow, urinalysis for urine osmolality and sodium is indicated. She has no renal insufficiency to suggest that this could contribute. She shows no signs of heart failure or edema state. I tried to reassure the patient that this is not dangerous to her and that we would watch. The reason for a fluid restriction is in case this is heading in the wrong direction and is real. She will be glad to be off fluid restriction if we find that this is improved. In the future, I recommended that her laboratory be done only day and a half after receiving Ig. - Time Spent With Patient Total time spent is greater than 50% in coordination of care (as documented) at patient's floor/unit and/or counseling patient: Internal Medicine - CN: HPI - Data of Consult Patient: known to practice within the last 3 years Consult date: 11/05/18 Requesting Physician: James Rushing MD - Consult Narrative Reason for consult: Hyponatremia History of present illness: Ms. Bailey is a 57 year old female known to me from a couple of days ago. She had repeat sodium today which was 118. Her primary provider, Dr. Kalin Rushing, requested consultation to evaluate. Medications and symptoms were reviewed with patient. She has a sodium of 131, of days ago. This fell to 118 today. Yesterday, she received subcutaneous Ig. She has not had diaphoresis, etc. She has no change in heart failure, edema or similar symptoms. She has not increased her water intake or other intake of foods which potentially could affect sugar or salt. She has respiratory problems but no new pneumonia or other abnormalities of chest x-ray to suggest a reason for SIADH. She feels tired today but states that she always feels tired for a day or day and a half after she gives herself the immunoglobulin G. Patient has no complaint of chest discomfort, dyspnea, orthopnea, palpitations, nausea or vomiting, constipation or diarrhea, other changes in bowel habits, difficulty with urination, rash or itching, or other new complaints, except as mentioned above. Review of systems is otherwise negative. I discussed management of her care with nursing staff. Past Med Surg Social Fam HX - Past Medical History Medical history: asthma, COPD, coronary artery disease, diabetes, hyperlipidem ia, hypertension, myocardial infarction, other Additional medical history: IGG Psychiatric history: anxiety, depression - Past Surgical History Surgical History: , herniorrhaphy, hysterectomy, knee replacement, other Additional surgical history: heart stents - Social History Smoking Status: Former smoker Smokeless Tobacco Status: No Alcohol use: unknown Drug use: none - Family History Paternal Grandfather Living Status: Hx Family Cardiac Disorders: Yes ([place]) Paternal Grandmother Adopted: No Living Status: Hx Family Cancer: Yes (Lung cancer) Mother Hx Family Cardiac Disorders: Yes (Heart disease and hypertension) Hx Family Cancer: Yes (leukemia, breast cancer) Hx Family Endocrine Disorder: Yes (Diabetes) Father Living Status: Hx Family Cardiac Disorders: Yes Hx Family Respiratory Disorders: Yes Hx Family Cancer: No Hx Family Endocrine Disorder: No Brother Living Status: Hx Family Cancer: Yes (unknown type cancer) Sister Living Status: Hx Family Cardiac Disorders: Yes (Heart disease) Hx Family Respiratory Disorders: Yes (COPD) Hx Family Cancer: Yes (leukemia) Hx Family Endocrine Disorder: Yes ("thyroid problems") Review of systems: See above. Internal Medicine - CN: Meds Aspirin 81 mg PO HS 07/06/15 [History] Cholecalciferol (Vitamin D3) [Vitamin D] 1,000 unit PO DAILY 07/06/15 [History] Clopidogrel Bisulfate [Plavix] 75 mg PO DAILY 07/06/15 [History] Guaifenesin [Mucinex] 600 mg PO BID 07/06/15 [History] Magnesium Oxide [Magnesium] 400 mg PO BID 07/06/15 [History] Nitroglycerin [Nitrostat] 0.4 mg SL [id number] PRN 07/06/15 [History] Roflumilast [Daliresp] 500 mcg PO HS 07/06/15 [History] Docusate Sodium [Colace] 250 mg PO DAILY PRN 07/11/15 [History] Pantoprazole Sodium [Protonix] 40 mg PO DAILY 07/11/15 [History] OxyCODONE/APAP 7.5/325 [Percocet 7.5/325 MG] 1 tab PO Q6HR PRN 06/11/16 [History] Ranolazine [Ranexa] 500 mg PO BID 06/11/16 [History] Ascorbic Acid [Vitamin C] 500 mg PO BID tablet 06/14/16 [Rx] Acetaminophen [Tylenol] 650 mg PO Q6HR PRN #0 tablet 08/31/16 [Rx] Sertraline [Zoloft] 50 mg PO HS #30 tablet 09/05/16 [Rx] Albuterol Neb [Proventil Neb] 2.5 mg IH Q4HR PRN 05/29/17 [History] Loratadine [Allergy Relief] 10 mg PO DAILY 05/29/17 [History] Niacin (24 HR) [Niaspan] 500 mg PO DAILY 05/29/17 [History] Potassium Chloride [Klor-Con 10] 10 meq PO DAILY 05/29/17 [History] EPINEPHrine [Epipen] 0.3 mg IM ONCE PRN 01/15/18 [History] Ferrous Sulfate 325 mg PO BID 01/15/18 [History] Immune Globulin, Gamma (IGG) [Privigen 10% 10 GM/100 ML] 35 units IJ QWEEK 01/15/18 [History] Oxygen 2 - 5 l .ROUTE CONT #1 each 02/03/18 [Rx] Albuterol Sulfate [Ventolin Hfa] 2 puff IH Q4H PRN 07/15/18 [History] Fluticasone Propionate Nasal [Flonase] 2 spr NS DAILY 07/15/18 [History] Gabapentin [Neurontin] 300 mg PO TID 07/15/18 [History] Losartan Potassium [Cozaar] 50 mg PO DAILY 07/15/18 [History] Metformin HCl 1,000 mg PO BID 07/15/18 [History] Metoprolol Succinate [Toprol Xl] 50 mg PO HS 07/15/18 [History] Montelukast [Singulair] 10 mg PO HS 07/15/18 [History] Simvastatin [Zocor] 40 mg PO HS 07/15/18 [History] amLODIPine [Norvasc] 5 mg PO DAILY 07/15/18 [History] glipiZIDE [Glucotrol] 10 mg PO BIDWM 07/15/18 [History] Tiotropium [Spiriva] 1 puff IH DAILY 10/19/18 [History] Budesonide Neb [Pulmicort Neb] 0.5 mg IH BIDR inhsol 10/30/18 [Rx] Clotrimazole [Mycelex Faye] 10 mg MM 5XD faye 10/30/18 [Rx] Ipratropium/Albuterol Neb [Duoneb] 3 ml IH [id number] inhsol 10/30/18 [Rx] Isosorbide MONOnitrate (24 HR) [Imdur] 90 mg PO DAILY tab.er.24h 10/30/18 [Rx] Sodium Chloride/Aloe Nasal Gel [[place] Saline Nasal Gel] 1 appl NS Q2H PRN tube 10/30/18 [Rx] Theophylline Anhydrous [Theodur] 300 mg PO BID tab.er.12h 10/30/18 [Rx] predniSONE [PredniSONE] 5 mg PO DAILY 30 Days #30 tablet 10/30/18 [Rx] Allergy/AdvReac Type Severity Reaction Status Date / Time Penicillins Allergy Difficulty Verified 07/15/18 10:41 Breathing Sulfa (Sulfonamide Allergy Difficulty Verified 07/15/18 10:41 Antibiotics) Breathing sulfamethoxazole Allergy Difficulty Verified 07/15/18 10:41 [From Bactrim] Breathing trimethoprim [From Bactrim] Allergy Difficulty Verified 07/15/18 10:41 Breathing furosemide [From Lasix] AdvReac Dizziness Verified 07/15/18 10:41 Hospitalist - CN: Exam - Constitutional Vitals: Temp Pulse Resp BP Pulse Ox 97.6 F 76 18 130/67 91 11/05/18 07:53 11/05/18 07:53 11/05/18 07:53 11/05/18 07:53 11/05/18 07:53 Exam: Examination: (Except as mentioned above): General: In no apparent distress, alert and oriented 3. She is wearing intraoral oxygen by nasal cannula at 5 L/m. Head: Atraumatic and normocephalic. Eyes: Extraocular muscles are intact, pupils equal round and reactive to light and accommodation. Sclerae anicteric. Ears: External ears are normal to inspection and hearing is grossly normal. Nose: Patent without lesion noted. Mouth: No intraoral lesions seen. Dentition is unremarkable. Neck: Supple with trachea midline. There is no thyromegaly or adenopathy and carotids are 2+ without bruit heard. Respiratory: No use of accessory muscles. Lungs are clear throughout with the exception of occasional sonorous rhonchi. Actually, she sounds better than a couple of days ago.. Normal airflow. Cardiovascular: Regular rate and rhythm without murmur appreciated. Abdomen: Bowel sounds are normal. No hepatosplenomegaly masses or tenderness. Obese and therefore difficult to palpate deeply. Extremities: No cyanosis clubbing or edema. Neurological: A and O 3. Cranial nerves II through XII are intact. No focal deficits and no abnormal movements or postures. Skin: Warm and non-diaphoretic with no lesions noted. Breasts, pelvic and rectal: Not examined. Internal Medicine - CN: Reslt - Labs CBC & Chem 7: 11/05/18 05:45 11/05/18 05:45 Labs: Short CBC 11/05/18 Range/Units 05:45 WBC 16.3 H (4.3-11.1) K/mcL Hgb 13.0 D (11.5-15.4) g/dL Hct 37.0 (35.3-44.9) % Plt Count 229 (140-400) K/mcL Neutrophils # 12.2 H (1.6-8.9) K/mcL BMP 11/05/18 05:45 Sodium 118 L* Potassium 4.4 Chloride 83 L Carbon Dioxide 29 BUN 8 Creatinine 0.56 L Glucose 120 H Calcium 8.7 Consult Discharge Plan - Plan Referrals: James Rushing MD [Primary Care Provider] -
[2018-11-05 17:32] LABS: Alanine Aminotransferase 15 Units/L (7-52); Albumin 3.7 g/dL (3.5-5.7); Albumin/Globulin Ratio 1.1 (1.1-2.2); Alkaline Phosphatase 67 Units/L (34-104); Aspartate Amino Transferase 12 Units/L (13-39); BUN/Creatinine Ratio 17 (6-26); Bilirubin,Total 0.6 mg/dL (0.3-1.0); Blood Urea Nitrogen 9 mg/dL (6-20); Calcium 8.8 mg/dL (8.6-10.3); Carbon Dioxide 28 mEq/L (23-29); Chloride 83 mEq/L (98-107); Globulin 3.5 g/dL (2.4-3.5); Glucose 142 mg/dL (70-105); Osmolality,Calculated 245 (280-300); Potassium 4.6 mEq/L (3.5-5.1); Sodium 117 mEq/L (136-145); Total Protein 7.2 g/dL (6.4-8.9); eGFR For Non-African Americans > 60 (> 60)
[2018-11-05] MEDS: Aspirin 81 MG TAB.CHEW PO SCH (19:58)
[2018-11-05] MEDS: (Roflumilast [Daliresp] 500 MCG) PO SCH (20:02)
[2018-11-05] MEDS: Metoprolol XL (24 HR) Succ 50 MG TAB.ER.24H PO SCH (20:03)
[2018-11-05] MEDS: Melatonin 3 MG TABLET PO PRN (20:28)
[2018-11-06] MEDS: *HR* OxyCODONE/APAP 7.5/325 TABLET PO PRN ×3 (03:03→19:57)
[2018-11-06] MEDS: Ipratropium/Albuterol Neb 3 ML IH SCH ×4 (03:03→21:04)
[2018-11-06] MEDS: *HR* Enoxaparin 40 MG/0.4 ML SYRINGE SQ SCH (06:01)
[2018-11-06] MEDS: Acetylcysteine 10% 2 ML INHSOL IH SCH ×3 (06:02→22:01)
[2018-11-06 07:52] LABS: BUN/Creatinine Ratio 15 (6-26); Blood Urea Nitrogen 8 mg/dL (6-20); Carbon Dioxide 29 mEq/L (23-29); Chloride 89 mEq/L (98-107); Glucose 109 mg/dL (70-105); Osmolality,Calculated 257 (280-300); Sodium 124 mEq/L (136-145); eGFR For Non-African Americans > 60 (> 60)
[2018-11-06] MEDS: Insulin LISPRO 300 UNITS/3 ML VIAL SQ SCH ×2 (08:02→17:08)
[2018-11-06] MEDS: *HR* GlipiZIDE 5 MG TABLET PO SCH ×2 (08:22→17:04)
[2018-11-06] MEDS: *HR* Metformin 500 MG TABLET PO SCH ×2 (08:22→19:46)
[2018-11-06] MEDS: Cholecalciferol (D-3) 1,000 UNIT TABLET PO SCH (08:24)
[2018-11-06] MEDS: Gabapentin 300 MG CAPSULE PO SCH ×3 (08:24→19:46)
[2018-11-06] MEDS: Loratadine 10 MG TABLET PO SCH (08:24)
[2018-11-06] MEDS: Niacin (24 HR) 500 MG TAB.ER.24H PO SCH (08:24)
[2018-11-06] MEDS: Isosorbide MONOnitrate (24 HR) 60 MG TAB.ER.24H PO SCH (08:24)
[2018-11-06] MEDS: amLODIPine 5 MG TABLET PO SCH (08:25)
[2018-11-06] MEDS: predniSONE 5 MG TABLET PO SCH (08:25)
[2018-11-06] MEDS: Magnesium Oxide 400 MG TABLET PO SCH ×2 (08:25→19:46)
[2018-11-06] MEDS: Ascorbic Acid 500 MG TABLET PO SCH ×2 (08:25→19:46)
[2018-11-06] MEDS: Ranolazine 500 MG TAB.ER.12H PO SCH ×2 (08:25→19:46)
[2018-11-06] MEDS: Fluticasone Propionate Nasal 50 MCG/SPRAY BOTTLE NS SCH (08:26)
[2018-11-06] MEDS: Budesonide Neb 0.5 MG/2 ML IH SCH ×2 (09:30→21:04)
--- NOTE | 2018-11-06 10:45 | Internal Med Progress Note ---
Date of Encounter: 11/06/18 Time of Encounter: 10:45 - Assessment and plan (1) Physical deconditioning Current Visit: Yes Status: Acute Assessment and plan: She continues to show improvement and the therapies think that she may be ready and safe to be discharged to home on Sunday. She can resume her therapy today as sodium improved (2) Acute exacerbation of chronic obstructive airways disease Current Visit: Yes Status: Acute Assessment and plan: Her COPD and exacerbation is stable. Still requiring oxygen at 5 L to maintain saturation of about 90%. It drops if she exerts herself or is without her oxygen. Continue trying to taper as she improves (3) Chest pain Current Visit: Yes Status: Resolved Qualifiers: Chest pain type: unspecified Qualified Code(s): R07.9 - Chest pain, unspecified (4) Dental infection Current Visit: Yes Status: Acute Assessment and plan: She has an appointment Sunday for evaluation by the local dentist (5) Hyponatremia Current Visit: Yes Status: Acute Assessment and plan: Significant improvement with her hyponatremia. I appreciate consultation from Dr. Jacobs. He suspects SIADH secondary to her IgG infusion on Sunday. We will continue fluid restriction and daily sodium testing to be done. Clinically she does not appear to have pneumonia or other etiology (6) Leukocytosis Current Visit: Yes Status: Acute Qualifiers: Leukocytosis type: unspecified Qualified Code(s): D72.829 - Elevated white blood cell count, unspecified (7) Oral candidiasis Current Visit: Yes Status: Acute (8) CAD (coronary artery disease) Current Visit: Yes Status: Chronic Assessment and plan: No angina or CHF. Qualifiers: Coronary Disease-Associated Artery/Lesion type: [place] artery [place] vs. transplanted heart: [place] heart Associated angina: without angina Qualified Code(s): I25.10 - Atherosclerotic heart disease of [place] coronary artery without angina pectoris (9) Diabetes mellitus Current Visit: Yes Status: Chronic Assessment and plan: Sugars are under reasonable control. 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 She states her breathing has been doing fair ly well but her saturations drop when she is too active. She denies any cardiac type chest pain. She denies coughing or sputum production. She has had no fevers or chills. No infectious symptoms currently. She states she does better when she is sitting upright, breathing is better with BiPAP when she is lying with head of bed elevated. (She would benefit from a hospital bed to elevate her head) She does not like to be on the fluid restriction of 500 mL's daily. However I told her that the sodium improved dramatically. We will continue the same until sodium gets closer to normal. - Constitutional Vitals: Temp Pulse Resp BP Pulse Ox 97.4 F L 67 18 108/72 92 11/06/18 07:00 11/06/18 07:00 11/06/18 07:00 11/06/18 07:00 11/06/18 08:30 General appearance: Present: A&O X 3, no acute distress, answers questions appropriately - Respiratory Additional comments: Decreased breath sounds throughout but essentially clear. Occasional rare crackle at the bases. No wheezing noted. No respiratory distress. - Cardiovascular Cardiovascular exam: Present: RRR, +S1, +S2, systolic murmur (1/ 6 systolic murmur) - GI/Abdominal GI/Abdominal exam: Present: soft. Absent: tenderness - Extremities Exam Extremities exam: Absent: calf tenderness, pedal edema Internal Medicine: Result - Labs CBC & Chem 7: 11/05/18 05:45 11/06/18 07:17 Labs: BMP 11/05/18 11/06/18 16:55 07:17 Sodium 117 L* 124 L Potassium 4.6 4.0 Chloride 83 L 89 L Carbon Dioxide 28 29 BUN 9 8 Creatinine 0.52 L 0.52 L Glucose 142 H 109 H Calcium 8.8 9.0 Liver Function 11/05/18 Range/Units 16:55 Total Bilirubin 0.6 (0.3-1.0) mg/dL AST 12 L (13-39) Units/L ALT 15 (7-52) Units/L Alkaline Phosphatase 67 (34-104) Units/L Albumin 3.7 (3.5-5.7) g/dL Sodium improved from 117 2023. - Impressions Impressions Chest X-Ray 11/05/18 12:20 IMPRESSION: Findings suggest bilateral lower lobe pneumonia D/ / Jhonny Tobar MD / Jhonny Tobar MD Interpreting Provider: Jhonny Tobar MD - Diagnostic Studies Chest x-ray Additional comments: Chest x-ray shows bilateral pleural effusions. Likely this is related to her [place] hospitalization for pneumonia and exacerbation of COPD. Unfortunately, we do not have a baseline film when she was first admitted to our facility or at the end of the [place] hospitalization. Clinically she does not have pneumonia or CHF oh. Consult Discharge Plan - Plan Referrals: James Rushing MD [Primary Care Provider] -
[2018-11-06] MEDS: Aspirin 81 MG TAB.CHEW PO SCH (19:45)
[2018-11-06] MEDS: Metoprolol XL (24 HR) Succ 50 MG TAB.ER.24H PO SCH (19:46)
[2018-11-06] MEDS: (Roflumilast [Daliresp] 500 MCG) PO SCH (19:46)
[2018-11-06] MEDS: Melatonin 3 MG TABLET PO PRN (19:57)
[2018-11-07] MEDS: Ipratropium/Albuterol Neb 3 ML IH SCH ×4 (04:19→21:41)
[2018-11-07 05:59] LABS: Basophils # 0.1 K/mcL (0.0-0.2); Basophils % 0.7 %; Eosinophils # 0.2 K/mcL (0.0-0.6); Eosinophils % 1.5 %; Hematocrit 37.2 % (35.3-44.9); Immature Granulocytes % 0.6 % (0-4); Lymphocytes # 1.7 K/mcL (0.6-4.6); Lymphocytes % 13.8 %; Mean Corpuscular HGB Conc 34.9 g/dL (31.6-35.5); Mean Corpuscular Hemoglobin 33.2 pg (28.0-33.3); Mean Corpuscular Volume 94.9 fL (83.0-100.0); Mean Platelet Volume 8.8 fL (9.4-12.4); Monocytes # 1.2 K/mcL (0.0-1.3); Monocytes % 9.4 %; Platelet Count 250 K/mcL (140-400); Red Blood Count 3.92 M/mcL (3.82-4.97); Red Cell Distribution Width 13.8 % (11.5-14.5)
[2018-11-07 06:16] LABS: BUN/Creatinine Ratio 15 (6-26); Blood Urea Nitrogen 9 mg/dL (6-20); Calcium 9.1 mg/dL (8.6-10.3); Carbon Dioxide 27 mEq/L (23-29); Chloride 91 mEq/L (98-107); Glucose 122 mg/dL (70-105); Osmolality,Calculated 262 (280-300); Potassium 3.9 mEq/L (3.5-5.1); Sodium 126 mEq/L (136-145); eGFR For Non-African Americans > 60 (> 60)
[2018-11-07] MEDS: *HR* Enoxaparin 40 MG/0.4 ML SYRINGE SQ SCH (06:23)
[2018-11-07] MEDS: Acetylcysteine 10% 2 ML INHSOL IH SCH ×3 (06:24→21:41)
[2018-11-07] MEDS: Fluticasone Propionate Nasal 50 MCG/SPRAY BOTTLE NS SCH (07:40)
[2018-11-07] MEDS: *HR* GlipiZIDE 5 MG TABLET PO SCH ×2 (07:41→16:38)
[2018-11-07] MEDS: Insulin LISPRO 300 UNITS/3 ML VIAL SQ SCH ×2 (07:41→16:39)
[2018-11-07] MEDS: amLODIPine 5 MG TABLET PO SCH (07:42)
[2018-11-07] MEDS: Niacin (24 HR) 500 MG TAB.ER.24H PO SCH (07:42)
[2018-11-07] MEDS: *HR* OxyCODONE/APAP 7.5/325 TABLET PO PRN ×2 (07:42→21:30)
[2018-11-07] MEDS: Isosorbide MONOnitrate (24 HR) 60 MG TAB.ER.24H PO SCH (07:42)
[2018-11-07] MEDS: *HR* Metformin 500 MG TABLET PO SCH ×2 (07:43→21:30)
[2018-11-07] MEDS: Ranolazine 500 MG TAB.ER.12H PO SCH ×2 (07:43→21:27)
[2018-11-07] MEDS: Magnesium Oxide 400 MG TABLET PO SCH ×2 (07:43→21:29)
[2018-11-07] MEDS: Loratadine 10 MG TABLET PO SCH (07:43)
[2018-11-07] MEDS: Gabapentin 300 MG CAPSULE PO SCH ×3 (07:43→21:28)
[2018-11-07] MEDS: Cholecalciferol (D-3) 1,000 UNIT TABLET PO SCH (07:43)
[2018-11-07] MEDS: Ascorbic Acid 500 MG TABLET PO SCH ×2 (07:43→21:29)
[2018-11-07] MEDS: predniSONE 5 MG TABLET PO SCH (07:44)
[2018-11-07] MEDS: Budesonide Neb 0.5 MG/2 ML IH SCH ×2 (10:06→22:09)
--- NOTE | 2018-11-07 10:43 | Internal Med Progress Note ---
Date of Encounter: 11/07/18 Time of Encounter: 10:43 - Assessment and plan (1) Physical deconditioning Current Visit: Yes Status: Acute Assessment and plan: She continues to improve with her physical deconditioning with PT and OT. She is advancing close to being able to go home. We will see how she does going to and from the dentist tomorrow. Slowly able to decrease oxygen requirements now down to 4 L. (2) Acute exacerbation of chronic obstructive airways disease Current Visit: Yes Status: Acute Assessment and plan: Continues to improve. Continue same medication. (3) Chest pain Current Visit: Yes Status: Resolved Qualifiers: Chest pain type: unspecified Qualified Code(s): R07.9 - Chest pain, un specified (4) Dental infection Current Visit: Yes Status: Acute Assessment and plan: Patient is due to see a surgeon tomorrow (5) Hyponatremia Current Visit: Yes Status: Acute Assessment and plan: Hyponatremia, likely SIADH. It is normalizing with fluid restriction. Sodium up to 126. Continue the same. (6) Leukocytosis Current Visit: Yes Status: Acute Qualifiers: Leukocytosis type: unspecified Qualified Code(s): D72.829 - Elevated white blood cell count, unspecified (7) Oral candidiasis Current Visit: Yes Status: Acute (8) CAD (coronary artery disease) Current Visit: Yes Status: Chronic Qualifiers: Coronary Disease-Associated Artery/Lesion type: [place] artery [place] vs. transplanted heart: [place] heart Associated angina: without angina Qualified Code(s): I25.10 - Atherosclerotic heart disease of [place] coronary artery without angina pectoris (9) Diabetes mellitus Current Visit: Yes Status: Chronic Qualifiers: Diabetes mellitus type: type 2 Diabetes mellitus oysterman insulin use: reji honeycutt oysterman use Diabetes mellitus complication status: without complication Qualified Code(s): E11.9 - Type 2 diabetes mellitus without complications (10) Hypertension Current Visit: Yes Status: Chronic Qualifiers: Hypertension type: essential hypertension Qualified Code(s): I10 - Essential (primary) hypertension (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 She has been able to tolerate decreasing oxygen flow to 4 L of maintaining saturation she has been progressing with her therapies. She is unhappy that she is still on a 500 mL fluid restriction. I explained that her sodium is now up to 126. We will continue the conservative treatment. She is due to see a dentist tomorrow for a painful molar. We talked about the logistics of her family taking her to and from the dentist. - Constitutional Vitals: Temp Pulse Resp BP Pulse Ox 98 F 70 17 125/74 90 11/07/18 07:50 11/07/18 07:50 11/07/18 07:50 11/07/18 07:50 11/07/18 08:38 General appearance: Present: A&O X 3, no acute distress, answers questions appropriately - Respiratory Additional comments: Very diminished breath sounds throughout with only scattered minor rhonchi. No localized crackles. No respiratory distress. - Cardiovascular Cardiovascular exam: Present: RRR, +S1, +S2 - Extremities Exam Extremities exam: Absent: pedal edema Internal Medicine: Result - Labs CBC & Chem 7: 11/07/18 05:54 11/07/18 05:54 Labs: Short CBC 11/07/18 Range/Units 05:54 WBC 12.2 H (4.3-11.1) K/mcL Hgb 13.0 (11.5-15.4) g/dL Hct 37.2 (35.3-44.9) % Plt Count 250 (140-400) K/mcL Neutrophils # 9.0 H (1.6-8.9) K/mcL BMP 11/07/18 05:54 Sodium 126 L Potassium 3.9 Chloride 91 L Carbon Dioxide 27 BUN 9 Creatinine 0.61 Glucose 122 H Calcium 9.1 Labs have been reviewed. White blood cell count normalizing. Sodium up to 126. Renal function normal. Consult Discharge Plan - Plan Referrals: James Rushing MD [Primary Care Provider] -
[2018-11-07] MEDS: Aspirin 81 MG TAB.CHEW PO SCH (21:28)
[2018-11-07] MEDS: Melatonin 3 MG TABLET PO PRN (21:29)
[2018-11-07] MEDS: Metoprolol XL (24 HR) Succ 50 MG TAB.ER.24H PO SCH (21:29)
[2018-11-07] MEDS: (Roflumilast [Daliresp] 500 MCG) PO SCH (21:30)
[2018-11-08] MEDS: Ipratropium/Albuterol Neb 3 ML IH SCH ×4 (03:02→20:41)
[2018-11-08] MEDS: *HR* Enoxaparin 40 MG/0.4 ML SYRINGE SQ SCH (06:05)
--- NOTE | 2018-11-08 07:02 | Internal Med Progress Note ---
Date of Encounter: 11/08/18 Time of Encounter: 06:57 - Assessment and plan (1) Physical deconditioning Current Visit: Yes Status: Acute Assessment and plan: Continues showing improvement with her therapies and pulmonary endurance. Anticipate she will be discharged to home in the next few days. Also depends on her hyponatremia (2) Acute exacerbation of chronic obstructive airways disease Current Visit: Yes Status: Acute (3) Chest pain Current Visit: Yes Status: Resolved Assessment and plan: No recurrence of chest pains. Qualifiers: Chest pain type: unspecified Qualified Code(s): R07.9 - Chest pain, u nspecified (4) Dental infection Current Visit: Yes Status: Acute Assessment and plan: She will see a dentist today. (5) Hyponatremia Current Visit: Yes Status: Acute Assessment and plan: Hyponatremia as improved. With fluid restriction to 500 mL her sodium is now up to 130. We will liberalize her drinking to 1000 mL daily. (She says at home she drinks 2 or 3 L) (6) Leukocytosis Current Visit: Yes Status: Acute Qualifiers: Leukocytosis type: unspecified Qualified Code(s): D72.829 - Elevated white blood cell count, unspecified (7) Oral candidiasis Current Visit: Yes Status: Acute (8) CAD (coronary artery disease) Current Visit: Yes Status: Chronic Assessment and plan: No angina or CHF Qualifiers: Coronary Disease-Associated Artery/Lesion type: [place] artery [place] vs. 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 Diabetes mellitus complication status: without complication Qualified Code(s): E11.9 - Type 2 diabetes mellitus without complications (10) Hypertension Current Visit: Yes Status: Chronic Qualifiers: Hypertension type: essential hypertension Qualified Code(s): I10 - Essential (primary) hypertension (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 Today she dressed all by herself. She is not having major dyspneic episodes. She denies a cardiac type chest pain. No significant sputum production. Today she goes to the dentist as she think she needs a tooth pulled. - Constitutional Vitals: Temp Pulse Resp BP Pulse Ox 97.7 F 69 20 126/75 95 11/07/18 19:00 11/07/18 19:00 11/08/18 03:02 11/07/18 19:00 11/08/18 03:02 General appearance: Present: A&O X 3, no acute distress, answers questions appropriately - Respiratory Additional comments: Decreased breath sounds in all oliva, but totally clear today. No dyspnea. Continues with her oxygen and has good saturations at 4 L. - Cardiovascular Cardiovascular exam: Present: RRR, +S1, +S2 - Extremities Exam Extremities exam: Absent: pedal edema, tenderness Internal Medicine: Result - Labs CBC & Chem 7: 11/07/18 05:54 11/08/18 05:44 Labs: BMP 11/08/18 05:44 Sodium 130 L Sodium is now up to 130. Consult Discharge Plan - Plan Referrals: James Rushing MD [Primary Care Provider] -
[2018-11-08] MEDS: Magnesium Oxide 400 MG TABLET PO SCH ×2 (07:50→20:38)
[2018-11-08] MEDS: Isosorbide MONOnitrate (24 HR) 60 MG TAB.ER.24H PO SCH (07:50)
[2018-11-08] MEDS: Niacin (24 HR) 500 MG TAB.ER.24H PO SCH (07:50)
[2018-11-08] MEDS: *HR* GlipiZIDE 5 MG TABLET PO SCH ×2 (07:51→17:28)
[2018-11-08] MEDS: *HR* Metformin 500 MG TABLET PO SCH ×2 (07:52→20:38)
[2018-11-08] MEDS: Ascorbic Acid 500 MG TABLET PO SCH ×2 (07:53→20:40)
[2018-11-08] MEDS: predniSONE 5 MG TABLET PO SCH (07:54)
[2018-11-08] MEDS: Ranolazine 500 MG TAB.ER.12H PO SCH ×2 (07:54→20:39)
[2018-11-08] MEDS: Loratadine 10 MG TABLET PO SCH (07:54)
[2018-11-08] MEDS: amLODIPine 5 MG TABLET PO SCH (07:54)
[2018-11-08] MEDS: Cholecalciferol (D-3) 1,000 UNIT TABLET PO SCH (07:55)
[2018-11-08] MEDS: Gabapentin 300 MG CAPSULE PO SCH ×3 (07:55→20:39)
[2018-11-08] MEDS: Insulin LISPRO 300 UNITS/3 ML VIAL SQ SCH ×2 (07:56→17:22)
[2018-11-08] MEDS: *HR* OxyCODONE/APAP 7.5/325 TABLET PO PRN ×3 (08:03→20:40)
[2018-11-08] MEDS: Acetylcysteine 10% 2 ML INHSOL IH SCH ×3 (08:05→20:40)
[2018-11-08] MEDS: Fluticasone Propionate Nasal 50 MCG/SPRAY BOTTLE NS SCH (08:10)
[2018-11-08] MEDS: Budesonide Neb 0.5 MG/2 ML IH SCH ×2 (11:32→21:57)
[2018-11-08] MEDS: Aspirin 81 MG TAB.CHEW PO SCH (20:38)
[2018-11-08] MEDS: (Roflumilast [Daliresp] 500 MCG) PO SCH (20:39)
[2018-11-08] MEDS: Metoprolol XL (24 HR) Succ 50 MG TAB.ER.24H PO SCH (20:40)
[2018-11-08] MEDS: Melatonin 3 MG TABLET PO PRN (20:40)
[2018-11-09] MEDS: *HR* Enoxaparin 40 MG/0.4 ML SYRINGE SQ SCH (04:14)
[2018-11-09] MEDS: Ipratropium/Albuterol Neb 3 ML IH SCH ×4 (04:14→21:24)
[2018-11-09] MEDS: *HR* OxyCODONE/APAP 7.5/325 TABLET PO PRN ×4 (04:15→22:23)
[2018-11-09] MEDS: Insulin LISPRO 300 UNITS/3 ML VIAL SQ SCH ×2 (08:26→16:35)
[2018-11-09] MEDS: *HR* GlipiZIDE 5 MG TABLET PO SCH ×2 (08:26→16:34)
[2018-11-09] MEDS: *HR* Metformin 500 MG TABLET PO SCH ×2 (08:28→20:40)
[2018-11-09] MEDS: amLODIPine 5 MG TABLET PO SCH (09:07)
[2018-11-09] MEDS: Cholecalciferol (D-3) 1,000 UNIT TABLET PO SCH (09:08)
[2018-11-09] MEDS: predniSONE 5 MG TABLET PO SCH (09:08)
[2018-11-09] MEDS: Ranolazine 500 MG TAB.ER.12H PO SCH ×2 (09:08→20:33)
[2018-11-09] MEDS: Magnesium Oxide 400 MG TABLET PO SCH ×2 (09:12→20:32)
[2018-11-09] MEDS: Ascorbic Acid 500 MG TABLET PO SCH ×2 (09:12→20:33)
[2018-11-09] MEDS: Gabapentin 300 MG CAPSULE PO SCH ×3 (09:12→20:33)
[2018-11-09] MEDS: Niacin (24 HR) 500 MG TAB.ER.24H PO SCH (09:12)
[2018-11-09] MEDS: Isosorbide MONOnitrate (24 HR) 60 MG TAB.ER.24H PO SCH (09:12)
[2018-11-09] MEDS: Acetylcysteine 10% 2 ML INHSOL IH SCH ×3 (09:13→22:23)
[2018-11-09] MEDS: Loratadine 10 MG TABLET PO SCH (09:13)
[2018-11-09] MEDS: Fluticasone Propionate Nasal 50 MCG/SPRAY BOTTLE NS SCH (09:15)
[2018-11-09] MEDS: Budesonide Neb 0.5 MG/2 ML IH SCH ×2 (12:08→21:24)
--- NOTE | 2018-11-09 14:46 | Internal Med Progress Note ---
Date of Encounter: 11/09/18 Time of Encounter: 14:41 - Assessment and plan (1) Physical deconditioning Current Visit: Yes Status: Acute Assessment and plan: She is advancing nicely with her therapy for physical deconditioning. I anticipate that she will be able to go home in the next 1 or 2 days. (2) Acute exacerbation of chronic obstructive airways disease Current Visit: Yes Status: Acute Assessment and plan: She is stable from a pulmonary point of view other than having to maintain 4 L per nasal cannula for adequate saturations. (3) Chest pain Current Visit: Yes Status: Resolved Qualifiers: Chest pain type: unspecified Qualified Code(s): R07.9 - Chest pain, unspecified (4) Dental infection Current Visit: Yes Status: Acute Assessment and plan: She has left lower molar removed yesterday. Appears to be doing well. Restrictions reviewed. (5) Hyponatremia Current Visit: Yes Status: Acute Assessment and plan: Overall has improved, but did decline from 130 to 128 today. Continue fluid restriction to less than 1000 mL's per day and recheck tomorrow. (6) Leukocytosis Current Visit: Yes Status: Acute Qualifiers: Leukocytosis type: unspecified Qualified Code(s): D72.829 - Elevated white blood cell count, unspecified (7) Oral candidiasis Current Visit: Yes Status: Acute (8) CAD (coronary artery disease) Current Visit: Yes Status: Chronic Assessment and plan: No angina or CHF Qualifiers: Coronary Disease-Associated Artery/Lesion type: [place] artery [place] vs. transplanted heart: [place] heart Associated angina: without angina Qualified Code(s): I25.10 - Atherosclerotic heart disease of [place] coronary artery without angina pectoris (9) Diabetes mellitus Current Visit: Yes Status: Chronic Assessment and plan: Sugars are under adequate control Qualifiers: Diabetes mellitus type: type 2 Diabetes mellitus termite control service representative insulin use: without termite control service representative use Diabetes mellitus complication status: without complication Qualified Code(s): E11.9 - Type 2 diabetes mellitus without complications (10) Hypertension Current Visit: Yes Status: Chronic Qualifiers: Hypertension type: essential hypertension Qualified Code(s): I10 - Essential (primary) hypertension (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 She has some sputum production which is thick today. Nonbloody. At first she was able to maintain her saturations at 3-1/2 L but now back up to 4 L. She denies any cardiac type chest pain. No GI symptoms. No lower extremity swelling. She had her left lower molar removed yesterday by Dr. Lee as outpatient. The procedure went very well. No bleeding or problems today. However, she has restrictions of not being able to use a straw her BiPAP currently to help avoid dry socket. She feels like she is progressing well with her therapies. She is trying to hold off on her fluids and maintain less than 1000 mL fluid restriction. Her sodium dropped slightly to 128 from 130. - Constitutional Vitals: Temp Pulse Resp BP Pulse Ox 97.5 F L 70 16 117/78 91 11/09/18 08:59 11/09/18 08:59 11/09/18 08:59 11/09/18 08:59 11/09/18 12:11 General appearance: Present: A&O X 3, no acute distress, answers questions appropriately - Respiratory Respiratory exam: Present: decreased breath sounds (But clear. No rhonchi or rales or crackles or respiratory distress) - Cardiovascular Cardiovascular exam: Present: RRR, +S2, systolic murmur (1/6 systolic murmur) - Extremities Exam Extremities exam: Absent: calf tenderness, pedal edema Internal Medicine: Result - Labs CBC & Chem 7: 11/07/18 05:54 11/09/18 04:55 Labs: BMP 11/09/18 04:55 Sodium 128 L Sodium dropped a bit to 128 today. Consult Discharge Plan - Plan Referrals: James Rushing MD [Primary Care Provider] -
[2018-11-09] MEDS: Aspirin 81 MG TAB.CHEW PO SCH (20:31)
[2018-11-09] MEDS: Metoprolol XL (24 HR) Succ 50 MG TAB.ER.24H PO SCH (20:33)
[2018-11-09] MEDS: Melatonin 3 MG TABLET PO PRN (20:38)
[2018-11-09] MEDS: (Roflumilast [Daliresp] 500 MCG) PO SCH (21:05)
[2018-11-10] MEDS: Ipratropium/Albuterol Neb 3 ML IH SCH ×2 (04:04→11:07)
[2018-11-10] MEDS: *HR* Enoxaparin 40 MG/0.4 ML SYRINGE SQ SCH (04:04)
[2018-11-10] MEDS: Acetylcysteine 10% 2 ML INHSOL IH SCH (06:29)
[2018-11-10 07:13] VITALS: BP 108/63
[2018-11-10] MEDS: Ascorbic Acid 500 MG TABLET PO SCH (08:29)
[2018-11-10] MEDS: Cholecalciferol (D-3) 1,000 UNIT TABLET PO SCH (08:30)
[2018-11-10] MEDS: Gabapentin 300 MG CAPSULE PO SCH (08:30)
[2018-11-10] MEDS: amLODIPine 5 MG TABLET PO SCH (08:31)
[2018-11-10] MEDS: Isosorbide MONOnitrate (24 HR) 60 MG TAB.ER.24H PO SCH (08:31)
[2018-11-10] MEDS: Magnesium Oxide 400 MG TABLET PO SCH (08:31)
[2018-11-10] MEDS: *HR* GlipiZIDE 5 MG TABLET PO SCH (08:32)
[2018-11-10] MEDS: Niacin (24 HR) 500 MG TAB.ER.24H PO SCH (08:32)
[2018-11-10] MEDS: Fluticasone Propionate Nasal 50 MCG/SPRAY BOTTLE NS SCH (08:32)
[2018-11-10] MEDS: Insulin LISPRO 300 UNITS/3 ML VIAL SQ SCH (08:32)
[2018-11-10] MEDS: Loratadine 10 MG TABLET PO SCH (08:32)
[2018-11-10] MEDS: predniSONE 5 MG TABLET PO SCH (08:32)
[2018-11-10] MEDS: *HR* Metformin 500 MG TABLET PO SCH (08:34)
[2018-11-10] MEDS: Ranolazine 500 MG TAB.ER.12H PO SCH (08:34)
[2018-11-10] MEDS: *HR* OxyCODONE/APAP 7.5/325 TABLET PO PRN (08:42)
[2018-11-10] MEDS: Budesonide Neb 0.5 MG/2 ML IH SCH (11:44)
--- NOTE | 2018-11-10 14:43 | Discharge Summary ---
- NOTES TO OUTPATIENT PROVIDER Notes to Outpatient Provider: #1. Follow-up with corporate associate attorney Dr.Nick Chiu 11/18/18. #2. Follow-up with Dr. Rushing 11/22/18. #3. Follow-up sodium/labs ordered prior to Dr. Rushing appointment Date of Encounter: 11/10/18 Time of Encounter: 14:38 - Discharge Diagnosis (1) Physical deconditioning Priority: Primary Status: Acute Comments: Patient was admitted to our facility in a Rehab bed for deconditioning having been admitted to [facility] with exacerbation of COPD and had extended admission since before [facility]. When transferred to us, she could not get to the bedside commode without having dyspnea. She has had PT, OT, recreational therapy and has advanced her ADLs to where she is now totally independent, no further severe dyspnea episodes, no angina or CHF issues. Therapy department feels that she is safe to be discharged to home at this time. (2) Acute exacerbation of chronic obstructive airways disease Priority: Secondary Status: Acute Comments: She is a long-standing history of COPD and hypoxia, and recent hospitalization at [facility] with exacerbation of COPD. Her medications were adjusted there including increasing budesonide to twice a day, increasing Geremias-24 to twice a day, and adding changing albuterol to DuoNeb nebulizer treatments. They discontinued Symbicort,Incruse Elliptica and Flovent. She has been on low-dose prednisone at 5 mg for the past several days. She is still requiring a higher level of oxygen supplement, 4 L currently to maintain saturations in the 90s. This is down from 5 L. Her baseline at home is typically 2 or 3 L. Lungs are diminished but clear today. She has not had any recent dyspneic episodes. She still oxygen dependent 24 hours per day. She has follow-up appointment with her corporate associate attorney Dr. Chiu for next Sunday. (3) Chest pain Priority: Secondary Status: Resolved Comments: She has no history of CAD. She had medication adjustment at [facility] including increasing her isosorbide ER to 90 mg daily. She has had no anginal or CHF type symptoms in our facility. Qualifiers: Chest pain type: unspecified Qualified Code(s): R07.9 - Chest pain, unspecified (4) Dental infection Priority: Secondary Status: Acute Comments: While in our facility, she was sent to the dentist because of a bad tooth and that left lower molar was pulled 2 days ago. She did well with that. Prior to the dentist visit she had been on clindamycin. That was discontinued at discharge. (5) Hyponatremia Priority: Secondary Status: Acute Comments: Patient intermittently has had slightly low sodium levels. During this hospital stay, and specifically the day after her IgG infusion, her sodium dropped to 118 unexpectedly. She was evaluated by our hospitalist/licensed nurse practitioner Dr. 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 With fluid restriction of 500 mL for a few days then liberalizing to 1000 mL it is now heading back to normal at 130 at discharge. We will spot check her sodium in the future as well. (6) Leukocytosis Priority: Secondary Status: Acute Comments: Minimal leukocytosis likely from her recent infection and her prolonged prednisone use. No signs of infection noted. White blood cell count is 12,000 Qualifiers: Leukocytosis type: unspecified Qualified Code(s): D72.829 - Elevated white blood cell count, unspecified (7) Oral candidiasis Priority: Secondary Status: Acute Comments: Patient had an episode of oral candidiasis and was on clotrimazole troches on transferred to us. No symptoms and signs result, and the clotrimazole was discontinued. Then she developed severe chest pain/heartburn when she ate. It is presumed that she may have esophageal candidiasis. She was treated with restarting the clotrimazole and with Diflucan. She currently has no related symptoms or signs. It will be discontinued at discharge and watched closely. She would no longer be on prednisone at discharge. I talked her about indications for EGD. (8) CAD (coronary artery disease) Priority: Secondary Status: Chronic Comments: She has not had any cardiac or congestive heart failure symptoms during this hospital stay. Qualifiers: Coronary Disease-Associated Artery/Lesion type: [place] artery [place] vs. transplanted heart: [place] heart Associated angina: without angina Qualified Code(s): I25.10 - Atherosclerotic heart disease of [place] coronary artery without angina pectoris (9) Diabetes mellitus Priority: Secondary Status: Chronic Comments: Her blood sugars have been under fair control. They have been mildly elevated likely due to her prednisone use. Her recent glycohemoglobin is 8.1%. We will follow as an outpatient Qualifiers: Diabetes mellitus type: type 2 Diabetes mellitus local intermodal truck driver insulin use: without local intermodal truck driver use Diabetes mellitus complication status: without complication Qualified Code(s): E11.9 - Type 2 diabetes mellitus without complications (10) Hypertension Priority: Secondary Status: Chronic Comments: Long-standing history of hypertension and blood pressures have been under good control during this hospital stay. 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 Incidentally, she had significant hyponatremia of 118 the day after procedure. Without any other obvious etiology for her hyponatremia, it was thought to be due to SIADH from the infusion. I recommended that she decrease her fluid intake for 2 or 3 days during that weekly infusion (12) GINA (obstructive sleep apnea) Priority: Secondary Status: Chronic Comments: She continues with her BiPAP at home. (13) Tobacco use Priority: Secondary Status: Chronic Comments: She has been tobacco free now for the past few weeks while hospitalized. I talked to her again about tobacco cessation and offered assistance. (14) DVT prophylaxis Priority: Secondary Status: Inactive Hospital course: Ms. Bailey is a 58 year old female with known history of severe oxygen- dependent COPD, recent pneumonia and known CAD was admitted to our facility in a rehab bed because of deconditioning. She was requiring oxygen at 5 L per nasal cannula, she was dyspneic just getting to the bedside commode, could not get dressed or maintain her ADLs. She underwent PT, OT, RT and improved her ADLs as discussed above. On day of discharge she is independent, able to maintain her ADLs and should be safe to be sent home. She still requiring 4 L per nasal cannula though. She the diagnoses above. She has follow-up with her corporate associate attorney next Sunday and with me the following week. Discharge discussed with: patient Time spent discussing smoking cessation with patient: 3 to 10 minutes - Time Spent with Patient Total time spent providing and/or coordinating discharge services: - Discharge Medications Prescriptions: Ipratropium/Albuterol Neb [Duoneb] 3 ml IH [id number] #120 inhsol Budesonide Neb [Pulmicort Neb] 0.5 mg IH BIDR #60 inhsol Isosorbide MONOnitrate (24 HR) [Imdur] 90 mg PO DAILY #30 tab.er.24h Simvastatin [Zocor] 10 mg PO HS #30 tablet Theophylline Anhydrous [Theodur] 300 mg PO BID #60 tab.er.12h Home Medications: Aspirin 81 mg PO HS 07/06/15 [History] Cholecalciferol (Vitamin D3) [Vitamin D] 1,000 unit PO DAILY 07/06/15 [History] Clopidogrel Bisulfate [Plavix] 75 mg PO DAILY 07/06/15 [History] Guaifenesin [Mucinex] 600 mg PO BID 07/06/15 [History] Magnesium Oxide [Magnesium] 400 mg PO BID 07/06/15 [History] Nitroglycerin [Nitrostat] 0.4 mg SL [id number] PRN 07/06/15 [History] Roflumilast [Daliresp] 500 mcg PO HS 07/06/15 [History] Docusate Sodium [Colace] 250 mg PO DAILY PRN 07/11/15 [History] Pantoprazole Sodium [Protonix] 40 mg PO DAILY 07/11/15 [History] OxyCODONE/APAP 7.5/325 [Percocet 7.5/325 MG] 1 tab PO Q6HR PRN 06/11/16 [History] Ranolazine [Ranexa] 500 mg PO BID 06/11/16 [History] Ascorbic Acid [Vitamin C] 500 mg PO BID tablet 06/14/16 [Rx] Acetaminophen [Tylenol] 650 mg PO Q6HR PRN #0 tablet 08/31/16 [Rx] Sertraline [Zoloft] 50 mg PO HS #30 tablet 09/05/16 [Rx] Loratadine [Allergy Relief] 10 mg PO DAILY 05/29/17 [History] Niacin (24 HR) [Niaspan] 500 mg PO DAILY 05/29/17 [History] Potassium Chloride [Klor-Con 10] 10 meq PO DAILY 05/29/17 [History] EPINEPHrine [Epipen] 0.3 mg IM ONCE PRN 01/15/18 [History] Ferrous Sulfate 325 mg PO BID 01/15/18 [History] Immune Globulin, Gamma (IGG) [Privigen 10% 10 GM/100 ML] 35 units IJ QWEEK 01/15/18 [History] Oxygen 2 - 5 l .ROUTE CONT #1 each 02/03/18 [Rx] Albuterol Sulfate [Ventolin Hfa] 2 puff IH Q4H PRN 07/15/18 [History] Fluticasone Propionate Nasal [Flonase] 2 spr NS DAILY 07/15/18 [History] Gabapentin [Neurontin] 300 mg PO TID 07/15/18 [History] Losartan Potassium [Cozaar] 50 mg PO DAILY 07/15/18 [History] Metformin HCl 1,000 mg PO BID 07/15/18 [History] Metoprolol Succinate [Toprol Xl] 50 mg PO HS 07/15/18 [History] Montelukast [Singulair] 10 mg PO HS 07/15/18 [History] amLODIPine [Norvasc] 5 mg PO DAILY 07/15/18 [History] glipiZIDE [Glucotrol] 10 mg PO BIDWM 07/15/18 [History] Budesonide Neb [Pulmicort Neb] 0.5 mg IH BIDR #60 inhsol 11/10/18 [Rx] Calcium Carbonate [Tums] 1,000 mg PO Q4HR PRN tab.chew 11/10/18 [Rx] DiphenhydraMINE [Benadryl] 25 mg PO HS PRN capsule 11/10/18 [Rx] Ipratropium/Albuterol Neb [Duoneb] 3 ml IH [id number] #120 inhsol 11/10/18 [Rx] Isosorbide MONOnitrate (24 HR) [Imdur] 90 mg PO DAILY #30 tab.er.24h 11/10/18 [Rx] Simvastatin [Zocor] 10 mg PO HS #30 tablet 11/10/18 [Rx] Theophylline Anhydrous [Theodur] 300 mg PO BID #60 tab.er.12h 11/10/18 [Rx] Allergies/Adverse Reactions: Allergy/AdvReac Type Severity Reaction Status Date / Time Penicillins Allergy Difficulty Verified 07/15/18 10:41 Breathing Sulfa (Sulfonamide Allergy Difficulty Verified 07/15/18 10:41 Antibiotics) Breathing sulfamethoxazole Allergy Difficulty Verified 07/15/18 10:41 [From Bactrim] Breathing trimethoprim [From Bactrim] Allergy Difficulty Verified 07/15/18 10:41 Breathing furosemide [From Lasix] AdvReac Dizziness Verified 07/15/18 10:41 Date of admission: 10/30/18 14:35 Primary care physician: James Rushing MD Consults: 10/30/18 17:20 Consult to Occupational Therapy [CONS] Routine Comment: Evaluate, develop and implement POC Reason for Consult: deconditioning s/p copd exacerbation Does patient have active BEDREST order?: No Is patient medically & hemodynamically stable?: Yes Patient assessed for mobility or mobilized this visit?: No Consult to Physical Therapy [CONS] Routine Comment: Evaluate, develop and implement POC Reason for Consult: deconditioning s/p copd exacerbation Does patient have active BEDREST order?: No Is patient medically & hemodynamically stable?: Yes Patient assessed for mobility or mobilized this visit?: No Consult to Recreational Therapy [CONS] Routine Comment: Evaluate, develop and implement POC Consult to Cheese Cook [CONS] Routine Reason for SW Consult: deconditioning s/p copd exacerbation 11/05/18 11:28 Consult to Hospitalist [CONS] Routine Consulting Provider: Braulio Jacobs Reason for Consult: hyponatremia Call Completed: Yes Discharging clinician: James Rushing Anticipated date of discharge: 11/10/18 - Constitutional Vitals: Temp Pulse Resp BP Pulse Ox 98.0 F 73 16 108/63 95 11/10/18 07:00 11/10/18 07:00 11/10/18 07:00 11/10/18 07:00 11/10/18 07:00 General appearance: Present: A&O X 3, no acute distress, answers questions appropriately - Respiratory Respiratory exam: Present: decreased breath sounds, CTAB - Cardiovascular Cardiovascular exam: Present: RRR, +S1, +S2, systolic murmur (1/6 systolic murm ur) - Extremities Exam Extremities exam: Absent: calf tenderness, pedal edema, tenderness - Patient Status Disposition: Home, Self-Care Condition: Good Functional capacity at discharge: uses cane/walker Overall status at discharge: patient is progressing back to baseline - Discharge Instructions Follow Up With: James Rushing MD [Primary Care Provider] - 11/22/18 1:45 pm - Diet and Activity Activity: increase activity as tolerated, wear oxygen at all times Diet: diabetic diet, low fat, low cholesterol
--- NOTE | 2018-11-11 08:05 | Physician Discharge Referral ---
Home Health/Hosp Referral Info Transfer to: Home Health Provider in Charge Post Discharge: PCP () - Diagnosis (1) Physical deconditioning Priority: Primary Status: Acute (2) Acute exacerbation of chronic obstructive airways disease Priority: Secondary Status: Acute (3) Dental infection Priority: Secondary Status: Acute (4) Hyponatremia Priority: Secondary Status: Acute (5) Leukocytosis Priority: Secondary Status: Acute (6) Oral candidiasis Priority: Secondary Status: Acute (7) CAD (coronary artery disease) Priority: Secondary Status: Chronic (8) Diabetes mellitus Priority: Secondary Status: Chronic (9) Hypertension Priority: Secondary Status: Chronic (10) IgG deficiency Priority: Secondary Status: Chronic (11) GINA (obstructive sleep apnea) Priority: Secondary Status: Chronic (12) Tobacco use Priority: Secondary Status: Chronic - Respiratory Orders Oxygen / L per min (2-4 L/nc) Smoking Cessation: Smoking cessation has been advised. For more information, call the [place] Tobacco Quit Line at 5-801-ZBHT-NOW. - Activity Activity Orders: Up ad johnny, Walker - Services Needed Following services are medically necessary services: Nursing, Physical Therapy - Transfer Medications Prescriptions: Ipratropium/Albuterol Neb [Duoneb] 3 ml IH [id number] #120 inhsol Budesonide Neb [Pulmicort Neb] 0.5 mg IH BIDR #60 inhsol Isosorbide MONOnitrate (24 HR) [Imdur] 90 mg PO DAILY #30 tab.er.24h Simvastatin [Zocor] 10 mg PO HS #30 tablet Theophylline Anhydrous [Theodur] 300 mg PO BID #60 tab.er.12h Home Medications: Aspirin 81 mg PO HS 07/06/15 [History] Cholecalciferol (Vitamin D3) [Vitamin D] 1,000 unit PO DAILY 07/06/15 [History] Clopidogrel Bisulfate [Plavix] 75 mg PO DAILY 07/06/15 [History] Guaifenesin [Mucinex] 600 mg PO BID 07/06/15 [History] Magnesium Oxide [Magnesium] 400 mg PO BID 07/06/15 [History] Nitroglycerin [Nitrostat] 0.4 mg SL [id number] PRN 07/06/15 [History] Roflumilast [Daliresp] 500 mcg PO HS 07/06/15 [History] Docusate Sodium [Colace] 250 mg PO DAILY PRN 07/11/15 [History] Pantoprazole Sodium [Protonix] 40 mg PO DAILY 07/11/15 [History] OxyCODONE/APAP 7.5/325 [Percocet 7.5/325 MG] 1 tab PO Q6HR PRN 06/11/16 [History] Ranolazine [Ranexa] 500 mg PO BID 06/11/16 [History] Ascorbic Acid [Vitamin C] 500 mg PO BID tablet 06/14/16 [Rx] Acetaminophen [Tylenol] 650 mg PO Q6HR PRN #0 tablet 08/31/16 [Rx] Sertraline [Zoloft] 50 mg PO HS #30 tablet 09/05/16 [Rx] Loratadine [Allergy Relief] 10 mg PO DAILY 05/29/17 [History] Niacin (24 HR) [Niaspan] 500 mg PO DAILY 05/29/17 [History] Potassium Chloride [Klor-Con 10] 10 meq PO DAILY 05/29/17 [History] EPINEPHrine [Epipen] 0.3 mg IM ONCE PRN 01/15/18 [History] Ferrous Sulfate 325 mg PO BID 01/15/18 [History] Immune Globulin, Gamma (IGG) [Privigen 10% 10 GM/100 ML] 35 units IJ QWEEK 01/15/18 [History] Oxygen 2 - 5 l .ROUTE CONT #1 each 02/03/18 [Rx] Albuterol Sulfate [Ventolin Hfa] 2 puff IH Q4H PRN 07/15/18 [History] Fluticasone Propionate Nasal [Flonase] 2 spr NS DAILY 07/15/18 [History] Gabapentin [Neurontin] 300 mg PO TID 07/15/18 [History] Losartan Potassium [Cozaar] 50 mg PO DAILY 07/15/18 [History] Metformin HCl 1,000 mg PO BID 07/15/18 [History] Metoprolol Succinate [Toprol Xl] 50 mg PO HS 07/15/18 [History] Montelukast [Singulair] 10 mg PO HS 07/15/18 [History] amLODIPine [Norvasc] 5 mg PO DAILY 07/15/18 [History] glipiZIDE [Glucotrol] 10 mg PO BIDWM 07/15/18 [History] Budesonide Neb [Pulmicort Neb] 0.5 mg IH BIDR #60 inhsol 11/10/18 [Rx] Calcium Carbonate [Tums] 1,000 mg PO Q4HR PRN tab.chew 11/10/18 [Rx] DiphenhydraMINE [Benadryl] 25 mg PO HS PRN capsule 11/10/18 [Rx] Ipratropium/Albuterol Neb [Duoneb] 3 ml IH [id number] #120 inhsol 11/10/18 [Rx] Isosorbide MONOnitrate (24 HR) [Imdur] 90 mg PO DAILY #30 tab.er.24h 11/10/18 [Rx] Simvastatin [Zocor] 10 mg PO HS #30 tablet 11/10/18 [Rx] Theophylline Anhydrous [Theodur] 300 mg PO BID #60 tab.er.12h 11/10/18 [Rx] Allergies/Adverse Reactions: Allergy/AdvReac Type Severity Reaction Status Date / Time Penicillins Allergy Difficulty Verified 07/15/18 10:41 Breathing Sulfa (Sulfonamide Allergy Difficulty Verified 07/15/18 10:41 Antibiotics) Breathing sulfamethoxazole Allergy Difficulty Verified 07/15/18 10:41 [From Bactrim] Breathing trimethoprim [From Bactrim] Allergy Difficulty Verified 07/15/18 10:41 Breathing furosemide [From Lasix] AdvReac Dizziness Verified 07/15/18 10:41 Certification: Further, I certify that my clinical findings support that this patient is homebound (i.e. absences from home require considerable and taxing effort and are for medical reasons or jainism services or infrequently or short duration when for other reasons) because: Homebound Reason: Patient requires assistance of a person or device to safely leave home, Leaving home requires considerable and taxing effort due to condition, Severity of cardiac or pulmonary status limits activity tolerance Attestation: My signature below is to certify that this patient is under my care and that I, or nurse practitioner, or a physician's pharmacy assistant working with me, has a [id number] encounter with this patient.
== END 2018-11-10 15:45 | disposition home or self-care (01) | DRG 190 ==
LOC: INPGRE 14:35
PROVIDERS: ADMIT Family Medicine; ATTEND Family Medicine

== ENCOUNTER 2020-06-18 16:08 | Inpatient (IN) ==
[2020-06-18] MEDS ORDERED: Nitroglycerin 0.4 MG TAB.SUBL SL PRN (16:30)
[2020-06-18] MEDS ORDERED: EPINEPHrine 1 MG/ML VIAL IM PRN (16:30)
[2020-06-18] MEDS ORDERED: OXYGEN PRN (16:30)
[2020-06-18] MEDS: *HR* Enoxaparin 30 MG/0.3 ML SYRINGE SQ SCH (18:35)
[2020-06-18] MEDS: *HR* Metformin 500 MG TABLET PO SCH (18:35)
[2020-06-18] MEDS: Ipratropium/Albuterol Neb 3 ML IH SCH (20:49)
[2020-06-18] MEDS: Budesonide/Formoterol 160/4.5 1 PUFF INH IH SCH (20:50)
[2020-06-18] MEDS: Ascorbic Acid 500 MG TABLET PO SCH (21:35)
[2020-06-18] MEDS: Metoprolol XL (24 HR) Succ 50 MG TAB.ER.24H PO SCH (21:36)
[2020-06-18] MEDS: Ranolazine 500 MG TAB.ER.12H PO SCH (21:36)
[2020-06-18] MEDS: Niacin (24 HR) 500 MG TAB.ER.24H PO SCH (21:36)
[2020-06-18] MEDS: Gabapentin 300 MG CAPSULE PO SCH (21:36)
[2020-06-18] MEDS: *HR* OxyCODONE/APAP 7.5/325 TABLET PO PRN (22:52)
[2020-06-19] MEDS: Ipratropium/Albuterol Neb 3 ML IH SCH ×7 (00:12→23:26)
[2020-06-19] MEDS: *HR* OxyCODONE/APAP 7.5/325 TABLET PO PRN ×3 (05:16→21:02)
[2020-06-19] MEDS: *HR* Enoxaparin 30 MG/0.3 ML SYRINGE SQ SCH ×2 (05:16→17:40)
[2020-06-19 06:05] LABS: Basophils % 0.2 %; Eosinophils # 0.1 K/mcL (0.0-0.6); Eosinophils % 1.3 %; Hematocrit 25.7 % (35.3-44.9); Hemoglobin 8.9 g/dL (11.5-15.4); Immature Granulocytes % 0.9 % (0-4); Lymphocytes # 0.6 K/mcL (0.6-4.6); Lymphocytes % 6.6 %; Mean Corpuscular HGB Conc 34.6 g/dL (31.6-35.5); Mean Corpuscular Hemoglobin 31.9 pg (28.0-33.3); Mean Corpuscular Volume 92.1 fL (83.0-100.0); Mean Platelet Volume 9.3 fL (9.4-12.4); Monocytes # 1.2 K/mcL (0.0-1.3); Monocytes % 13.4 %; Platelet Count 238 K/mcL (140-400); Red Blood Count 2.79 M/mcL (3.82-4.97); Red Cell Distribution Width 14.2 % (11.5-14.5); Segmented Neutrophils % 77.6 %
[2020-06-19 06:24] LABS: BUN/Creatinine Ratio 11 (6-26); Blood Urea Nitrogen 6 mg/dL (8-23); Calcium 7.9 mg/dL (8.6-10.3); Carbon Dioxide 29 mEq/L (23-29); Chloride 96 mEq/L (98-107); Glucose 140 mg/dL (70-105); Osmolality,Calculated 272 (280-300); Potassium 3.6 mEq/L (3.5-5.1); Sodium 131 mEq/L (136-145); eGFR For African Americans > 60 (> 60); eGFR For Non-African Americans > 60 (> 60)
[2020-06-19] MEDS: polyethylene glycoL 3350 17 GM POWD.PACK PO SCH (08:38)
[2020-06-19] MEDS: Ranolazine 500 MG TAB.ER.12H PO SCH ×2 (08:39→21:29)
[2020-06-19] MEDS: Aspirin Enteric Coated 81 MG Tablet PO SCH (08:39)
[2020-06-19] MEDS: amLODIPine 5 MG TABLET PO SCH (08:39)
[2020-06-19] MEDS: Cholecalciferol (D-3) 1,000 UNIT (25MCG) TABLET PO SCH (08:39)
[2020-06-19] MEDS: Gabapentin 300 MG CAPSULE PO SCH ×3 (08:39→21:28)
[2020-06-19] MEDS: Ascorbic Acid 500 MG TABLET PO SCH ×2 (08:39→21:29)
[2020-06-19] MEDS: Magnesium Oxide 400 MG TABLET PO SCH (08:39)
[2020-06-19] MEDS: *HR* Metformin 500 MG TABLET PO SCH ×2 (08:39→17:39)
[2020-06-19] MEDS: Sennosides 8.6 MG TABLET PO SCH (08:42)
[2020-06-19] MEDS: Roflumilast [Daliresp] 500 MCG PO SCH (08:43)
[2020-06-19] MEDS: Budesonide/Formoterol 160/4.5 1 PUFF INH IH SCH ×2 (09:05→21:30)
[2020-06-19 12:53] LABS: Estimated Average Glucose 157 mg/dl
[2020-06-19] MEDS: Metoprolol XL (24 HR) Succ 50 MG TAB.ER.24H PO SCH (21:28)
[2020-06-19] MEDS: Niacin (24 HR) 500 MG TAB.ER.24H PO SCH (21:28)
[2020-06-19] MEDS: traZODone 50 MG TABLET PO PRN (21:29)
[2020-06-20] MEDS: Ipratropium/Albuterol Neb 3 ML IH SCH ×5 (03:24→20:22)
[2020-06-20] MEDS: *HR* OxyCODONE/APAP 7.5/325 TABLET PO PRN ×4 (03:24→21:38)
[2020-06-20] MEDS: *HR* Enoxaparin 30 MG/0.3 ML SYRINGE SQ SCH ×2 (05:45→17:47)
[2020-06-20 06:01] LABS: Red Blood Count 2.86 M/mcL (3.82-4.97); White Blood Count 9.4 K/mcL (4.3-11.1)
[2020-06-20 06:02] LABS: Basophils % 0.4 %; Eosinophils # 0.2 K/mcL (0.0-0.6); Hematocrit 26.8 % (35.3-44.9); Hemoglobin 9.1 g/dL (11.5-15.4); Lymphocytes # 0.9 K/mcL (0.6-4.6); Lymphocytes % 9.7 %; Mean Corpuscular Hemoglobin 31.8 pg (28.0-33.3); Mean Corpuscular Volume 93.7 fL (83.0-100.0); Mean Platelet Volume 9.4 fL (9.4-12.4); Monocytes # 1.3 K/mcL (0.0-1.3); Monocytes % 13.4 %; Neutrophils # 6.9 K/mcL (1.6-8.9); Platelet Count 317 K/mcL (140-400); Red Cell Distribution Width 14.6 % (11.5-14.5); Segmented Neutrophils % 73.5 %
[2020-06-20 06:23] LABS: BUN/Creatinine Ratio 11 (6-26); Blood Urea Nitrogen 6 mg/dL (8-23); Carbon Dioxide 29 mEq/L (23-29); Chloride 98 mEq/L (98-107); Glucose 133 mg/dL (70-105); Osmolality,Calculated 278 (280-300); Potassium 3.8 mEq/L (3.5-5.1); Sodium 134 mEq/L (136-145); eGFR For African Americans > 60 (> 60); eGFR For Non-African Americans > 60 (> 60)
[2020-06-20] MEDS: *HR* Metformin 500 MG TABLET PO SCH ×2 (09:08→17:46)
[2020-06-20] MEDS: Budesonide/Formoterol 160/4.5 1 PUFF INH IH SCH ×2 (09:08→20:23)
[2020-06-20] MEDS: Ranolazine 500 MG TAB.ER.12H PO SCH ×2 (09:08→21:36)
[2020-06-20] MEDS: Ascorbic Acid 500 MG TABLET PO SCH ×2 (09:08→21:37)
[2020-06-20] MEDS: Cholecalciferol (D-3) 1,000 UNIT (25MCG) TABLET PO SCH (09:08)
[2020-06-20] MEDS: Sennosides 8.6 MG TABLET PO SCH (09:08)
[2020-06-20] MEDS: Aspirin Enteric Coated 81 MG Tablet PO SCH (09:08)
[2020-06-20] MEDS: Magnesium Oxide 400 MG TABLET PO SCH (09:09)
[2020-06-20] MEDS: Gabapentin 300 MG CAPSULE PO SCH ×3 (09:09→21:36)
[2020-06-20] MEDS: polyethylene glycoL 3350 17 GM POWD.PACK PO SCH (09:09)
[2020-06-20] MEDS: amLODIPine 5 MG TABLET PO SCH (09:09)
[2020-06-20] MEDS: Roflumilast [Daliresp] 500 MCG PO SCH (09:09)
[2020-06-20] MEDS: Niacin (24 HR) 500 MG TAB.ER.24H PO SCH (21:36)
[2020-06-20] MEDS: Metoprolol XL (24 HR) Succ 50 MG TAB.ER.24H PO SCH (21:37)
[2020-06-20] MEDS: traZODone 50 MG TABLET PO PRN (21:38)
[2020-06-20] MEDS: Acetaminophen 325 MG TABLET PO PRN (21:40)
[2020-06-21] MEDS: Ipratropium/Albuterol Neb 3 ML IH SCH ×6 (00:05→20:12)
[2020-06-21] MEDS: *HR* OxyCODONE/APAP 7.5/325 TABLET PO PRN ×3 (03:38→16:18)
[2020-06-21 05:09] LABS: Basophils # 0.1 K/mcL (0.0-0.2); Basophils % 0.7 %; Eosinophils # 0.2 K/mcL (0.0-0.6); Eosinophils % 2.6 %; Hematocrit 27.4 % (35.3-44.9); Hemoglobin 9.3 g/dL (11.5-15.4); Lymphocytes # 1.1 K/mcL (0.6-4.6); Lymphocytes % 12.9 %; Mean Corpuscular HGB Conc 33.9 g/dL (31.6-35.5); Mean Corpuscular Volume 94.2 fL (83.0-100.0); Mean Platelet Volume 8.9 fL (9.4-12.4); Monocytes # 1.2 K/mcL (0.0-1.3); Platelet Count 363 K/mcL (140-400); Red Blood Count 2.91 M/mcL (3.82-4.97); Segmented Neutrophils % 68.8 %; White Blood Count 8.7 K/mcL (4.3-11.1)
[2020-06-21 05:26] LABS: BUN/Creatinine Ratio 11 (6-26); Blood Urea Nitrogen 6 mg/dL (8-23); Calcium 8.4 mg/dL (8.6-10.3); Carbon Dioxide 27 mEq/L (23-29); Chloride 99 mEq/L (98-107); Glucose 156 mg/dL (70-105); Osmolality,Calculated 277 (280-300); Potassium 3.9 mEq/L (3.5-5.1); Sodium 133 mEq/L (136-145); eGFR For African Americans > 60 (> 60); eGFR For Non-African Americans > 60 (> 60)
[2020-06-21] MEDS: *HR* Enoxaparin 30 MG/0.3 ML SYRINGE SQ SCH ×2 (05:26→17:45)
[2020-06-21] MEDS: Acetaminophen 325 MG TABLET PO PRN ×2 (05:26→14:16)
[2020-06-21] MEDS: *HR* Metformin 500 MG TABLET PO SCH ×2 (09:02→17:44)
[2020-06-21] MEDS: Sennosides 8.6 MG TABLET PO SCH (09:02)
[2020-06-21] MEDS: Gabapentin 300 MG CAPSULE PO SCH ×3 (09:02→21:15)
[2020-06-21] MEDS: Ranolazine 500 MG TAB.ER.12H PO SCH ×2 (09:02→21:15)
[2020-06-21] MEDS: Cholecalciferol (D-3) 1,000 UNIT (25MCG) TABLET PO SCH (09:02)
[2020-06-21] MEDS: Ascorbic Acid 500 MG TABLET PO SCH ×2 (09:03→21:15)
[2020-06-21] MEDS: polyethylene glycoL 3350 17 GM POWD.PACK PO SCH (09:03)
[2020-06-21] MEDS: Magnesium Oxide 400 MG TABLET PO SCH (09:03)
[2020-06-21] MEDS: Aspirin Enteric Coated 81 MG Tablet PO SCH (09:03)
[2020-06-21] MEDS: Roflumilast [Daliresp] 500 MCG PO SCH (09:03)
[2020-06-21] MEDS: amLODIPine 5 MG TABLET PO SCH (10:01)
[2020-06-21] MEDS: Budesonide/Formoterol 160/4.5 1 PUFF INH IH SCH ×2 (11:13→20:12)
[2020-06-21] MEDS: IMMUNE GLOBULIN SQ SCH (17:50)
[2020-06-21] MEDS: Niacin (24 HR) 500 MG TAB.ER.24H PO SCH (21:15)
[2020-06-21] MEDS: Metoprolol XL (24 HR) Succ 50 MG TAB.ER.24H PO SCH (21:16)
[2020-06-21] MEDS: traZODone 50 MG TABLET PO PRN (21:16)
[2020-06-21] MEDS: *HR* OxyCODONE/APAP 10/325 TABLET PO PRN (21:17)
[2020-06-22] MEDS: Ipratropium/Albuterol Neb 3 ML IH SCH ×7 (00:10→23:37)
[2020-06-22] MEDS: *HR* OxyCODONE/APAP 10/325 TABLET PO PRN ×4 (03:27→21:26)
[2020-06-22] MEDS: Acetaminophen 325 MG TABLET PO PRN (05:07)
[2020-06-22] MEDS: *HR* Enoxaparin 30 MG/0.3 ML SYRINGE SQ SCH ×2 (05:08→17:16)
[2020-06-22] MEDS: Magnesium Oxide 400 MG TABLET PO SCH (09:14)
[2020-06-22] MEDS: Ascorbic Acid 500 MG TABLET PO SCH ×2 (09:14→21:24)
[2020-06-22] MEDS: Ranolazine 500 MG TAB.ER.12H PO SCH ×2 (09:15→21:24)
[2020-06-22] MEDS: amLODIPine 5 MG TABLET PO SCH (09:15)
[2020-06-22] MEDS: *HR* Metformin 500 MG TABLET PO SCH ×2 (09:15→17:17)
[2020-06-22] MEDS: Gabapentin 300 MG CAPSULE PO SCH ×3 (09:16→21:25)
[2020-06-22] MEDS: Sennosides 8.6 MG TABLET PO SCH (09:16)
[2020-06-22] MEDS: Cholecalciferol (D-3) 1,000 UNIT (25MCG) TABLET PO SCH (09:16)
[2020-06-22] MEDS: Aspirin Enteric Coated 81 MG Tablet PO SCH (09:16)
[2020-06-22] MEDS: polyethylene glycoL 3350 17 GM POWD.PACK PO SCH (09:16)
[2020-06-22] MEDS: Roflumilast [Daliresp] 500 MCG PO SCH (09:16)
[2020-06-22] MEDS: Budesonide/Formoterol 160/4.5 1 PUFF INH IH SCH ×2 (12:03→20:08)
[2020-06-22] MEDS: traZODone 50 MG TABLET PO PRN (21:24)
[2020-06-22] MEDS: Niacin (24 HR) 500 MG TAB.ER.24H PO SCH (21:24)
[2020-06-22] MEDS: Metoprolol XL (24 HR) Succ 50 MG TAB.ER.24H PO SCH (21:24)
[2020-06-23] MEDS: *HR* OxyCODONE/APAP 10/325 TABLET PO PRN ×4 (03:27→22:19)
[2020-06-23] MEDS: Ipratropium/Albuterol Neb 3 ML IH SCH ×5 (03:42→22:31)
[2020-06-23] MEDS: *HR* Enoxaparin 30 MG/0.3 ML SYRINGE SQ SCH ×2 (05:25→17:04)
[2020-06-23] MEDS: Acetaminophen 325 MG TABLET PO PRN ×2 (05:26→22:25)
[2020-06-23] MEDS: Gabapentin 300 MG CAPSULE PO SCH ×3 (08:54→22:20)
[2020-06-23] MEDS: *HR* Metformin 500 MG TABLET PO SCH ×2 (08:54→17:05)
[2020-06-23] MEDS: Cholecalciferol (D-3) 1,000 UNIT (25MCG) TABLET PO SCH (08:54)
[2020-06-23] MEDS: Ranolazine 500 MG TAB.ER.12H PO SCH ×2 (08:54→22:19)
[2020-06-23] MEDS: Aspirin Enteric Coated 81 MG Tablet PO SCH (08:54)
[2020-06-23] MEDS: Sennosides 8.6 MG TABLET PO SCH (08:54)
[2020-06-23] MEDS: Ascorbic Acid 500 MG TABLET PO SCH ×2 (08:54→22:20)
[2020-06-23] MEDS: amLODIPine 5 MG TABLET PO SCH (08:55)
[2020-06-23] MEDS: polyethylene glycoL 3350 17 GM POWD.PACK PO SCH (08:55)
[2020-06-23] MEDS: Magnesium Oxide 400 MG TABLET PO SCH (08:55)
[2020-06-23] MEDS: Roflumilast [Daliresp] 500 MCG PO SCH (08:55)
[2020-06-23] MEDS: Budesonide/Formoterol 160/4.5 1 PUFF INH IH SCH ×2 (11:03→22:30)
[2020-06-23] MEDS: Nystatin POWDER 30 GM BOTTLE TP SCH ×2 (17:30→22:29)
[2020-06-23] MEDS: Niacin (24 HR) 500 MG TAB.ER.24H PO SCH (22:19)
[2020-06-23] MEDS: Metoprolol XL (24 HR) Succ 50 MG TAB.ER.24H PO SCH (22:20)
[2020-06-23] MEDS: traZODone 50 MG TABLET PO PRN (22:20)
[2020-06-24] MEDS: Ipratropium/Albuterol Neb 3 ML IH SCH ×7 (02:02→23:31)
[2020-06-24] MEDS: *HR* OxyCODONE/APAP 10/325 TABLET PO PRN ×4 (04:03→22:07)
[2020-06-24] MEDS: *HR* Enoxaparin 30 MG/0.3 ML SYRINGE SQ SCH ×2 (04:04→17:57)
[2020-06-24] MEDS: *HR* Metformin 500 MG TABLET PO SCH ×2 (09:07→17:57)
[2020-06-24] MEDS: amLODIPine 5 MG TABLET PO SCH (09:07)
[2020-06-24] MEDS: Cholecalciferol (D-3) 1,000 UNIT (25MCG) TABLET PO SCH (09:07)
[2020-06-24] MEDS: Gabapentin 300 MG CAPSULE PO SCH ×3 (09:07→22:10)
[2020-06-24] MEDS: Magnesium Oxide 400 MG TABLET PO SCH (09:08)
[2020-06-24] MEDS: Ranolazine 500 MG TAB.ER.12H PO SCH ×2 (09:08→22:11)
[2020-06-24] MEDS: Roflumilast [Daliresp] 500 MCG PO SCH (09:08)
[2020-06-24] MEDS: Aspirin Enteric Coated 81 MG Tablet PO SCH (09:08)
[2020-06-24] MEDS: Sennosides 8.6 MG TABLET PO SCH (09:08)
[2020-06-24] MEDS: Ascorbic Acid 500 MG TABLET PO SCH ×2 (09:08→22:10)
[2020-06-24] MEDS: Nystatin POWDER 30 GM BOTTLE TP SCH ×3 (09:09→22:11)
[2020-06-24] MEDS: polyethylene glycoL 3350 17 GM POWD.PACK PO SCH (09:10)
[2020-06-24] MEDS: Budesonide/Formoterol 160/4.5 1 PUFF INH IH SCH ×2 (11:09→20:52)
[2020-06-24] MEDS: Metoprolol XL (24 HR) Succ 50 MG TAB.ER.24H PO SCH (22:10)
[2020-06-24] MEDS: Niacin (24 HR) 500 MG TAB.ER.24H PO SCH (22:10)
[2020-06-24] MEDS: traZODone 50 MG TABLET PO PRN (22:11)
[2020-06-25] MEDS: *HR* OxyCODONE/APAP 10/325 TABLET PO PRN ×4 (03:44→21:42)
[2020-06-25] MEDS: Ipratropium/Albuterol Neb 3 ML IH SCH ×6 (03:45→23:49)
[2020-06-25] MEDS: *HR* Enoxaparin 30 MG/0.3 ML SYRINGE SQ SCH ×2 (04:09→17:33)
[2020-06-25] MEDS: amLODIPine 5 MG TABLET PO SCH (09:55)
[2020-06-25] MEDS: Ascorbic Acid 500 MG TABLET PO SCH ×2 (09:55→21:44)
[2020-06-25] MEDS: Cholecalciferol (D-3) 1,000 UNIT (25MCG) TABLET PO SCH (09:55)
[2020-06-25] MEDS: Ranolazine 500 MG TAB.ER.12H PO SCH ×2 (09:56→21:43)
[2020-06-25] MEDS: Magnesium Oxide 400 MG TABLET PO SCH (09:56)
[2020-06-25] MEDS: Gabapentin 300 MG CAPSULE PO SCH ×3 (09:56→21:44)
[2020-06-25] MEDS: Sennosides 8.6 MG TABLET PO SCH (09:56)
[2020-06-25] MEDS: Aspirin Enteric Coated 81 MG Tablet PO SCH (09:56)
[2020-06-25] MEDS: *HR* Metformin 500 MG TABLET PO SCH ×2 (09:56→17:33)
[2020-06-25] MEDS: Roflumilast [Daliresp] 500 MCG PO SCH (09:57)
[2020-06-25] MEDS: polyethylene glycoL 3350 17 GM POWD.PACK PO SCH (09:57)
[2020-06-25] MEDS: Nystatin POWDER 30 GM BOTTLE TP SCH ×3 (09:57→21:45)
[2020-06-25] MEDS: Budesonide/Formoterol 160/4.5 1 PUFF INH IH SCH ×2 (10:01→20:15)
[2020-06-25] MEDS: Metoprolol XL (24 HR) Succ 50 MG TAB.ER.24H PO SCH (21:43)
[2020-06-25] MEDS: traZODone 50 MG TABLET PO PRN (21:43)
[2020-06-25] MEDS: Niacin (24 HR) 500 MG TAB.ER.24H PO SCH (21:44)
[2020-06-26] MEDS: *HR* OxyCODONE/APAP 10/325 TABLET PO PRN ×2 (04:03→10:38)
[2020-06-26] MEDS: Ipratropium/Albuterol Neb 3 ML IH SCH ×5 (04:03→20:20)
[2020-06-26] MEDS: *HR* Enoxaparin 30 MG/0.3 ML SYRINGE SQ SCH ×2 (04:04→18:04)
[2020-06-26] MEDS: Budesonide/Formoterol 160/4.5 1 PUFF INH IH SCH ×2 (07:37→21:32)
[2020-06-26] MEDS: Gabapentin 300 MG CAPSULE PO SCH ×3 (10:37→20:57)
[2020-06-26] MEDS: *HR* Metformin 500 MG TABLET PO SCH ×2 (10:37→16:21)
[2020-06-26] MEDS: Ascorbic Acid 500 MG TABLET PO SCH ×2 (10:37→20:58)
[2020-06-26] MEDS: Aspirin Enteric Coated 81 MG Tablet PO SCH (10:37)
[2020-06-26] MEDS: Sennosides 8.6 MG TABLET PO SCH (10:37)
[2020-06-26] MEDS: Magnesium Oxide 400 MG TABLET PO SCH (10:37)
[2020-06-26] MEDS: Cholecalciferol (D-3) 1,000 UNIT (25MCG) TABLET PO SCH (10:38)
[2020-06-26] MEDS: Ranolazine 500 MG TAB.ER.12H PO SCH ×2 (10:38→20:58)
[2020-06-26] MEDS: amLODIPine 5 MG TABLET PO SCH (10:38)
[2020-06-26] MEDS: polyethylene glycoL 3350 17 GM POWD.PACK PO SCH (10:38)
[2020-06-26] MEDS: Roflumilast [Daliresp] 500 MCG PO SCH (10:38)
[2020-06-26] MEDS: Nystatin POWDER 30 GM BOTTLE TP SCH (10:38)
[2020-06-26] MEDS: Clotrimazole 1% CRM 15 GM TUBE TP SCH ×2 (16:00→20:59)
[2020-06-26] MEDS: *HR* OxyCODONE Immed Rel 5 MG TABLET PO PRN ×2 (16:20→21:32)
[2020-06-26] MEDS: *HR* OxyCODONE/APAP 10/325 TABLET PO SCH (18:04)
[2020-06-26] MEDS: Metoprolol XL (24 HR) Succ 50 MG TAB.ER.24H PO SCH (20:57)
[2020-06-26] MEDS: Niacin (24 HR) 500 MG TAB.ER.24H PO SCH (20:57)
[2020-06-26] MEDS: traZODone 50 MG TABLET PO PRN (20:58)
[2020-06-27] MEDS: *HR* OxyCODONE/APAP 10/325 TABLET PO SCH ×4 (00:08→18:11)
[2020-06-27] MEDS: Ipratropium/Albuterol Neb 3 ML IH SCH ×7 (00:08→23:57)
[2020-06-27] MEDS: Acetaminophen 325 MG TABLET PO PRN (03:32)
[2020-06-27] MEDS: *HR* Enoxaparin 30 MG/0.3 ML SYRINGE SQ SCH ×2 (06:06→17:21)
[2020-06-27] MEDS: Sennosides 8.6 MG TABLET PO SCH (09:15)
[2020-06-27] MEDS: Gabapentin 300 MG CAPSULE PO SCH ×3 (09:15→21:35)
[2020-06-27] MEDS: Ascorbic Acid 500 MG TABLET PO SCH ×2 (09:16→21:37)
[2020-06-27] MEDS: *HR* Metformin 500 MG TABLET PO SCH ×2 (09:16→17:21)
[2020-06-27] MEDS: Magnesium Oxide 400 MG TABLET PO SCH (09:16)
[2020-06-27] MEDS: Ranolazine 500 MG TAB.ER.12H PO SCH ×2 (09:17→21:36)
[2020-06-27] MEDS: Cholecalciferol (D-3) 1,000 UNIT (25MCG) TABLET PO SCH (09:17)
[2020-06-27] MEDS: polyethylene glycoL 3350 17 GM POWD.PACK PO SCH (09:17)
[2020-06-27] MEDS: Aspirin Enteric Coated 81 MG Tablet PO SCH (09:17)
[2020-06-27] MEDS: amLODIPine 5 MG TABLET PO SCH (09:17)
[2020-06-27] MEDS: *HR* OxyCODONE Immed Rel 5 MG TABLET PO PRN ×3 (09:27→21:37)
[2020-06-27] MEDS: Roflumilast [Daliresp] 500 MCG PO SCH (09:28)
[2020-06-27] MEDS: Clotrimazole 1% CRM 15 GM TUBE TP SCH ×2 (09:28→21:54)
[2020-06-27] MEDS: Budesonide/Formoterol 160/4.5 1 PUFF INH IH SCH ×2 (11:02→19:50)
[2020-06-27] MEDS: Niacin (24 HR) 500 MG TAB.ER.24H PO SCH (21:36)
[2020-06-27] MEDS: traZODone 50 MG TABLET PO PRN (21:37)
[2020-06-27] MEDS: Metoprolol XL (24 HR) Succ 50 MG TAB.ER.24H PO SCH (21:37)
[2020-06-28] MEDS: *HR* OxyCODONE/APAP 10/325 TABLET PO SCH ×4 (00:06→18:08)
[2020-06-28] MEDS: Acetaminophen 325 MG TABLET PO PRN (03:48)
[2020-06-28] MEDS: Ipratropium/Albuterol Neb 3 ML IH SCH ×6 (03:57→23:53)
[2020-06-28 05:25] LABS: Basophils # 0.1 K/mcL (0.0-0.2); Basophils % 0.7 %; Eosinophils # 0.4 K/mcL (0.0-0.6); Eosinophils % 2.5 %; Hematocrit 31.5 % (35.3-44.9); Hemoglobin 10.3 g/dL (11.5-15.4); Lymphocytes # 1.5 K/mcL (0.6-4.6); Lymphocytes % 9.4 %; Mean Corpuscular HGB Conc 32.7 g/dL (31.6-35.5); Mean Corpuscular Hemoglobin 32.1 pg (28.0-33.3); Mean Corpuscular Volume 98.1 fL (83.0-100.0); Mean Platelet Volume 8.6 fL (9.4-12.4); Monocytes # 1.5 K/mcL (0.0-1.3); Monocytes % 8.9 %; Neutrophils # 12.6 K/mcL (1.6-8.9); Platelet Count 539 K/mcL (140-400); Red Blood Count 3.21 M/mcL (3.82-4.97); Red Cell Distribution Width 16.7 % (11.5-14.5); Segmented Neutrophils % 77.5 %; White Blood Count 16.3 K/mcL (4.3-11.1)
[2020-06-28 05:40] LABS: BUN/Creatinine Ratio 13 (6-26); Blood Urea Nitrogen 7 mg/dL (8-23); Calcium 8.5 mg/dL (8.6-10.3); Carbon Dioxide 28 mEq/L (23-29); Chloride 96 mEq/L (98-107); Glucose 128 mg/dL (70-105); Osmolality,Calculated 276 (280-300); Potassium 3.8 mEq/L (3.5-5.1); Sodium 133 mEq/L (136-145); eGFR For African Americans > 60 (> 60); eGFR For Non-African Americans > 60 (> 60)
[2020-06-28] MEDS: *HR* Enoxaparin 30 MG/0.3 ML SYRINGE SQ SCH ×2 (05:43→18:09)
[2020-06-28] MEDS: Sennosides 8.6 MG TABLET PO SCH (08:19)
[2020-06-28] MEDS: Roflumilast [Daliresp] 500 MCG PO SCH (08:19)
[2020-06-28] MEDS: polyethylene glycoL 3350 17 GM POWD.PACK PO SCH (08:19)
[2020-06-28] MEDS: Cholecalciferol (D-3) 1,000 UNIT (25MCG) TABLET PO SCH (08:20)
[2020-06-28] MEDS: Ascorbic Acid 500 MG TABLET PO SCH ×2 (08:20→21:16)
[2020-06-28] MEDS: Gabapentin 300 MG CAPSULE PO SCH ×3 (08:20→21:15)
[2020-06-28] MEDS: Ranolazine 500 MG TAB.ER.12H PO SCH ×2 (08:21→21:15)
[2020-06-28] MEDS: Magnesium Oxide 400 MG TABLET PO SCH (08:21)
[2020-06-28] MEDS: *HR* Metformin 500 MG TABLET PO SCH ×2 (08:21→18:08)
[2020-06-28] MEDS: amLODIPine 5 MG TABLET PO SCH (08:21)
[2020-06-28] MEDS: *HR* OxyCODONE Immed Rel 5 MG TABLET PO PRN ×3 (08:29→21:17)
[2020-06-28] MEDS: Isosorbide MONOnitrate (24 HR) 60 MG TAB.ER.24H PO SCH ×2 (10:30→21:15)
[2020-06-28] MEDS: Loratadine 10 MG TABLET PO SCH (10:30)
[2020-06-28] MEDS: Aspirin Enteric Coated 81 MG Tablet PO SCH (10:30)
[2020-06-28] MEDS: Budesonide/Formoterol 160/4.5 1 PUFF INH IH SCH ×2 (11:29→19:50)
[2020-06-28] MEDS: Clotrimazole 1% CRM 15 GM TUBE TP SCH ×2 (12:03→21:15)
[2020-06-28] MEDS: IMMUNE GLOBULIN SQ SCH (15:26)
[2020-06-28] MEDS: Niacin (24 HR) 500 MG TAB.ER.24H PO SCH (21:15)
[2020-06-28] MEDS: Metoprolol XL (24 HR) Succ 50 MG TAB.ER.24H PO SCH (21:16)
[2020-06-28] MEDS: traZODone 50 MG TABLET PO PRN (21:16)
[2020-06-29] MEDS: *HR* OxyCODONE/APAP 10/325 TABLET PO SCH ×5 (00:34→23:55)
[2020-06-29] MEDS: Ipratropium/Albuterol Neb 3 ML IH SCH ×6 (03:51→23:59)
[2020-06-29] MEDS: Acetaminophen 325 MG TABLET PO PRN ×2 (04:05→22:32)
[2020-06-29] MEDS: *HR* Enoxaparin 30 MG/0.3 ML SYRINGE SQ SCH ×2 (06:31→18:05)
[2020-06-29] MEDS: Roflumilast [Daliresp] 500 MCG PO SCH (09:02)
[2020-06-29] MEDS: Isosorbide MONOnitrate (24 HR) 60 MG TAB.ER.24H PO SCH ×2 (09:21→22:34)
[2020-06-29] MEDS: Cholecalciferol (D-3) 1,000 UNIT (25MCG) TABLET PO SCH (09:21)
[2020-06-29] MEDS: Ranolazine 500 MG TAB.ER.12H PO SCH ×2 (09:21→22:33)
[2020-06-29] MEDS: *HR* Metformin 500 MG TABLET PO SCH ×2 (09:21→17:13)
[2020-06-29] MEDS: Gabapentin 300 MG CAPSULE PO SCH ×3 (09:22→22:31)
[2020-06-29] MEDS: Aspirin Enteric Coated 81 MG Tablet PO SCH (09:22)
[2020-06-29] MEDS: Magnesium Oxide 400 MG TABLET PO SCH (09:22)
[2020-06-29] MEDS: Ascorbic Acid 500 MG TABLET PO SCH ×2 (09:22→22:34)
[2020-06-29] MEDS: Loratadine 10 MG TABLET PO SCH (09:22)
[2020-06-29] MEDS: Clotrimazole 1% CRM 15 GM TUBE TP SCH ×2 (09:23→23:40)
[2020-06-29] MEDS: polyethylene glycoL 3350 17 GM POWD.PACK PO SCH (09:24)
[2020-06-29] MEDS: Sennosides 8.6 MG TABLET PO SCH (09:25)
[2020-06-29] MEDS: amLODIPine 5 MG TABLET PO SCH (09:25)
[2020-06-29] MEDS: *HR* OxyCODONE Immed Rel 5 MG TABLET PO PRN ×2 (09:31→16:02)
[2020-06-29 10:30] LABS: Basophils # 0.1 K/mcL (0.0-0.2); Basophils % 0.9 %; Eosinophils # 0.4 K/mcL (0.0-0.6); Eosinophils % 3.6 %; Hematocrit 30.6 % (35.3-44.9); Hemoglobin 10.1 g/dL (11.5-15.4); Lymphocytes # 1.4 K/mcL (0.6-4.6); Lymphocytes % 12.5 %; Mean Corpuscular Volume 96.8 fL (83.0-100.0); Mean Platelet Volume 8.2 fL (9.4-12.4); Monocytes # 1.2 K/mcL (0.0-1.3); Monocytes % 10.5 %; Neutrophils # 7.9 K/mcL (1.6-8.9); Platelet Count 465 K/mcL (140-400); Red Blood Count 3.16 M/mcL (3.82-4.97); Red Cell Distribution Width 16.4 % (11.5-14.5); Segmented Neutrophils % 71.5 %
[2020-06-29] MEDS: Budesonide/Formoterol 160/4.5 1 PUFF INH IH SCH ×2 (10:59→20:16)
[2020-06-29] MEDS ORDERED: IMMUNE GLOBULIN SQ SCH (16:15)
[2020-06-29] MEDS: traZODone 50 MG TABLET PO PRN (22:33)
[2020-06-29] MEDS: Metoprolol XL (24 HR) Succ 50 MG TAB.ER.24H PO SCH (22:33)
[2020-06-29] MEDS: Niacin (24 HR) 500 MG TAB.ER.24H PO SCH (22:33)
[2020-06-30] MEDS: Ipratropium/Albuterol Neb 3 ML IH SCH ×6 (03:56→23:53)
[2020-06-30] MEDS: *HR* OxyCODONE/APAP 10/325 TABLET PO SCH ×3 (06:00→18:07)
[2020-06-30] MEDS: *HR* Enoxaparin 30 MG/0.3 ML SYRINGE SQ SCH ×2 (06:00→18:08)
[2020-06-30] MEDS: Budesonide/Formoterol 160/4.5 1 PUFF INH IH SCH ×2 (06:07→21:28)
[2020-06-30] MEDS: Magnesium Oxide 400 MG TABLET PO SCH (06:49)
[2020-06-30] MEDS: Ranolazine 500 MG TAB.ER.12H PO SCH ×2 (06:49→21:37)
[2020-06-30] MEDS: Loratadine 10 MG TABLET PO SCH (06:49)
[2020-06-30] MEDS: Isosorbide MONOnitrate (24 HR) 60 MG TAB.ER.24H PO SCH ×2 (06:49→21:37)
[2020-06-30] MEDS: Gabapentin 300 MG CAPSULE PO SCH ×3 (06:49→21:37)
[2020-06-30] MEDS: Cholecalciferol (D-3) 1,000 UNIT (25MCG) TABLET PO SCH (06:49)
[2020-06-30] MEDS: amLODIPine 5 MG TABLET PO SCH (06:49)
[2020-06-30] MEDS: Aspirin Enteric Coated 81 MG Tablet PO SCH (06:50)
[2020-06-30] MEDS: Ascorbic Acid 500 MG TABLET PO SCH ×2 (06:50→21:38)
[2020-06-30] MEDS: Clotrimazole 1% CRM 15 GM TUBE TP SCH ×2 (06:50→21:37)
[2020-06-30] MEDS: *HR* Metformin 500 MG TABLET PO SCH ×2 (06:50→18:07)
[2020-06-30] MEDS: polyethylene glycoL 3350 17 GM POWD.PACK PO SCH (06:50)
[2020-06-30] MEDS: Roflumilast [Daliresp] 500 MCG PO SCH (06:51)
[2020-06-30] MEDS: Sennosides 8.6 MG TABLET PO SCH (06:52)
[2020-06-30] MEDS: *HR* OxyCODONE Immed Rel 5 MG TABLET PO PRN (15:21)
[2020-06-30] MEDS: Niacin (24 HR) 500 MG TAB.ER.24H PO SCH (21:37)
[2020-06-30] MEDS: Metoprolol XL (24 HR) Succ 50 MG TAB.ER.24H PO SCH (21:38)
[2020-06-30] MEDS: traZODone 50 MG TABLET PO PRN (21:39)
[2020-07-01] MEDS: *HR* OxyCODONE/APAP 10/325 TABLET PO SCH ×3 (00:05→13:11)
[2020-07-01] MEDS: *HR* Enoxaparin 30 MG/0.3 ML SYRINGE SQ SCH (06:05)
[2020-07-01] MEDS: Ipratropium/Albuterol Neb 3 ML IH SCH ×3 (06:06→10:08)
[2020-07-01 06:28] VITALS: BP 107/64
[2020-07-01] MEDS: Sennosides 8.6 MG TABLET PO SCH (09:10)
[2020-07-01] MEDS: Roflumilast [Daliresp] 500 MCG PO SCH (09:10)
[2020-07-01] MEDS: polyethylene glycoL 3350 17 GM POWD.PACK PO SCH (09:10)
[2020-07-01] MEDS: Aspirin Enteric Coated 81 MG Tablet PO SCH (09:12)
[2020-07-01] MEDS: Ranolazine 500 MG TAB.ER.12H PO SCH (09:12)
[2020-07-01] MEDS: Magnesium Oxide 400 MG TABLET PO SCH (09:12)
[2020-07-01] MEDS: Cholecalciferol (D-3) 1,000 UNIT (25MCG) TABLET PO SCH (09:12)
[2020-07-01] MEDS: Ascorbic Acid 500 MG TABLET PO SCH (09:13)
[2020-07-01] MEDS: Gabapentin 300 MG CAPSULE PO SCH (09:13)
[2020-07-01] MEDS: amLODIPine 5 MG TABLET PO SCH (09:13)
[2020-07-01] MEDS: Loratadine 10 MG TABLET PO SCH (09:13)
[2020-07-01] MEDS: *HR* OxyCODONE Immed Rel 5 MG TABLET PO PRN (09:13)
[2020-07-01] MEDS: *HR* Metformin 500 MG TABLET PO SCH (09:13)
[2020-07-01] MEDS: Isosorbide MONOnitrate (24 HR) 60 MG TAB.ER.24H PO SCH (09:13)
[2020-07-01] MEDS: Clotrimazole 1% CRM 15 GM TUBE TP SCH (09:15)
[2020-07-01] MEDS: Budesonide/Formoterol 160/4.5 1 PUFF INH IH SCH (10:09)
== END 2020-07-01 13:20 | disposition home health service (06) | DRG 560 ==
LOC: INPGRE 16:08
PROVIDERS: ADMIT Family Medicine; ATTEND Family Medicine

== ENCOUNTER 2021-05-09 00:49 | Inpatient (IN) ==
[2021-05-09] MEDS ORDERED: Ipratropium/Albuterol Neb 3 ML IH ONE ×4 (00:59→07:00)
[2021-05-09] MEDS ORDERED: methylPREDNISolone 125 MG/2 ML VIAL IVP ONE ×2 (00:59→08:15)
[2021-05-09] MEDS ORDERED: Furosemide 40 MG/4 ML VIAL IVP ONE (01:04)
[2021-05-09 01:20] LABS: Basophils # 0.1 K/mcL (0.0-0.2); Basophils % 0.3 %; Hemoglobin 12.7 g/dL (11.5-15.4); Immature Granulocytes % 2.6 % (0-4); Lymphocytes # 1.7 K/mcL (0.6-4.6); Lymphocytes % 6.1 %; Mean Corpuscular HGB Conc 31.8 g/dL (31.6-35.5); Mean Corpuscular Hemoglobin 31.1 pg (28.0-33.3); Mean Corpuscular Volume 97.8 fL (83.0-100.0); Mean Platelet Volume 8.8 fL (9.4-12.4); Monocytes # 1.4 K/mcL (0.0-1.3); Nucleated Red Blood Cells 0.1 /100 WBC (0); Platelet Count 348 K/mcL (140-400); Red Blood Count 4.09 M/mcL (3.82-4.97); Red Cell Distribution Width 20.1 % (11.5-14.5); White Blood Count 27.9 K/mcL (4.3-11.1)
[2021-05-09 01:26] LABS: Prothrombin Time 11.7 Seconds (9.4-12.1)
[2021-05-09 01:28] LABS: Platelet Estimate Normal (Normal)
[2021-05-09 01:29] LABS: Activated Partial Thrombo Time 24.6 Seconds (26.0-36.0)
[2021-05-09 01:33] LABS: VBG HCO3 26 mEq/L (21-27); VBG PCO2 44 mmHg (41-51); VBG PH 7.38 pH Units (7.32-7.42); VBG PO2 33 mmHg (25-50)
[2021-05-09 01:38] LABS: Alanine Aminotransferase 15 Units/L (7-52); Albumin/Globulin Ratio 1.4 (1.1-2.2); Alkaline Phosphatase 66 Units/L (34-104); Aspartate Amino Transferase 8 Units/L (13-39); BUN/Creatinine Ratio 16 (6-26); Bilirubin,Direct 0.1 mg/dL (0.0-0.2); Bilirubin,Indirect 0.2 mg/dL (0.0-1.0); Bilirubin,Total 0.3 mg/dL (0.3-1.0); Blood Urea Nitrogen 9 mg/dL (8-23); Calcium 9.2 mg/dL (8.6-10.3); Carbon Dioxide 28 mEq/L (23-29); Chloride 98 mEq/L (98-107); Globulin 2.9 g/dL (2.4-3.5); Glucose 167 mg/dL (70-105); Osmolality,Calculated 284 (280-300); Potassium 3.8 mEq/L (3.5-5.1); Sodium 136 mEq/L (136-145); Total Protein 6.9 g/dL (6.4-8.9); eGFR For African Americans > 60 (> 60); eGFR For Non-African Americans > 60 (> 60)
[2021-05-09 01:41] LABS: Troponin I < 0.03 ng/mL (< 0.04)
[2021-05-09] MEDS ORDERED: levoFLOXacin 750 MG/150 ML 750 MG/150 ML BAG IVPB ONE (01:55)
[2021-05-09 02:27] LABS: Bilirubin,Urine Negative (Negative); Blood,Urine Negative (Negative); Clarity,Urine Slightly Cloudy (Clear); Glucose,Urine (UA) Normal (Normal); Ketones,Urine Negative (Negative); Leukocyte Esterase,Urine Negative (Negative); Nitrite,Urine Negative (Negative); PH,Urine 6.5 pH Units (5.0-8.0); Protein,Urine Negative (Neg-Trace); Urobilinogen,Urine Normal (Normal)
[2021-05-09 02:29] LABS: Color,Urine Straw (Yellow)
[2021-05-09] MEDS ORDERED: Nitroglycerin 0.4 MG TAB.SUBL SL PRN (03:07)
[2021-05-09] MEDS ORDERED: Naloxone 0.4 MG/ML INJ IVP PRN (03:07)
[2021-05-09] MEDS ORDERED: Furosemide 20 MG TABLET PO PRN (03:07)
[2021-05-09] MEDS ORDERED: Acetaminophen 325 MG TABLET PO PRN (03:07)
[2021-05-09] MEDS ORDERED: Sennosides 8.6 MG TABLET PO PRN (03:07)
[2021-05-09] MEDS ORDERED: Saline Nasal Spray 44 ML BOTTLE NS PRN (03:07)
[2021-05-09] MEDS ORDERED: Ondansetron ODT 4 MG TAB.RAPDIS SL PRN (03:07)
[2021-05-09] MEDS ORDERED: *HR* Metformin 500 MG TABLET PO PRN (03:36)
[2021-05-09 05:10] LABS: Basophils % 0.2 %; Hematocrit 38.3 % (35.3-44.9); Hemoglobin 12.2 g/dL (11.5-15.4); Immature Granulocytes % 2.3 % (0-4); Mean Corpuscular HGB Conc 31.9 g/dL (31.6-35.5); Mean Corpuscular Hemoglobin 31.1 pg (28.0-33.3); Mean Corpuscular Volume 97.7 fL (83.0-100.0); Mean Platelet Volume 8.9 fL (9.4-12.4); Monocytes % 1.3 %; Platelet Count 328 K/mcL (140-400); Red Blood Count 3.92 M/mcL (3.82-4.97); Segmented Neutrophils % 94.2 %; White Blood Count 27.2 K/mcL (4.3-11.1)
[2021-05-09 05:11] LABS: Basophils # 0.1 K/mcL (0.0-0.2); Neutrophils # 25.6 K/mcL (1.6-8.9); Nucleated Red Blood Cells 0.1 /100 WBC (0)
[2021-05-09 05:13] LABS: Lymphocytes # 0.5 K/mcL (0.6-4.6); Monocytes # 0.4 K/mcL (0.0-1.3)
[2021-05-09 05:16] LABS: Platelet Estimate Normal (Normal)
[2021-05-09 05:27] LABS: Albumin 3.7 g/dL (3.5-5.7); Albumin/Globulin Ratio 1.4 (1.1-2.2); Bilirubin,Total 0.3 mg/dL (0.3-1.0); Globulin 2.7 g/dL (2.4-3.5); Magnesium 1.4 mg/dL (1.6-2.6); Phosphorous 3.2 mg/dL (2.7-4.5); Potassium 4.1 mEq/L (3.5-5.1); Total Protein 6.4 g/dL (6.4-8.9)
[2021-05-09] MEDS ORDERED: *HR* Enoxaparin 40 MG/0.4 ML SYRINGE SQ SCH (07:00)
[2021-05-09] MEDS: Budesonide/Formoterol 160/4.5 1 PUFF INH IH SCH ×2 (07:09→20:17)
[2021-05-09] MEDS: Tiotropium 10 INH DOSE IH SCH (07:12)
[2021-05-09] MEDS ORDERED: *HR* Dextrose 50 % in Water (Vial) 50 ML VIAL IVP PRN (08:28)
[2021-05-09] MEDS ORDERED: Dextrose Gel 15 GM/37.5 ML TUBE PO PRN ×2 (08:28)
[2021-05-09] MEDS ORDERED: D5% in Water 1,000 ML IVC PRN (08:28)
[2021-05-09] MEDS: GlipiZIDE 5 MG TABLET PO SCH ×2 (08:33→16:39)
[2021-05-09] MEDS: Cholecalciferol (D-3) 1,000 UNIT (25MCG) TABLET PO SCH (08:33)
[2021-05-09] MEDS: amLODIPine 5 MG TABLET PO SCH (08:33)
[2021-05-09] MEDS: Metoprolol XL (24 HR) Succ 50 MG TAB.ER.24H PO SCH (08:34)
[2021-05-09] MEDS: Gabapentin 300 MG CAPSULE PO SCH ×3 (08:34→20:05)
[2021-05-09] MEDS: Aspirin Enteric Coated 81 MG Tablet PO SCH (08:34)
[2021-05-09] MEDS: Ranolazine 500 MG TAB.ER.12H PO SCH ×2 (08:34→20:05)
[2021-05-09] MEDS: Artificial Tears SOLN 15 ML BOTTLE BOTH EYES SCH ×2 (08:34→20:04)
[2021-05-09] MEDS: Ascorbic Acid 500 MG TABLET PO SCH ×2 (08:34→20:05)
[2021-05-09] MEDS: Isosorbide MONOnitrate (24 HR) 60 MG TAB.ER.24H PO SCH ×2 (08:34→20:06)
[2021-05-09] MEDS: Nicotine 14 MG PATCH.TD24 TD SCH (08:34)
[2021-05-09] MEDS: Roflumilast [Daliresp] 500 MCG PO SCH (08:36)
[2021-05-09] MEDS: Fluticasone Propionate Nasal 50 MCG/SPRAY BOTTLE NS SCH ×2 (08:36→08:49)
[2021-05-09] MEDS: Insulin LISPRO 300 UNITS/3 ML VIAL SUBQ SCH ×4 (08:52→20:04)
[2021-05-09] MEDS ORDERED: Azithromycin 250 MG TABLET PO SCH (09:00)
[2021-05-09] MEDS ORDERED: ALPRAZolam 0.5 MG TABLET PO SCH (09:00)
[2021-05-09] MEDS: *HR* OxyCODONE/APAP 7.5/325 TABLET PO PRN ×2 (09:02→20:06)
[2021-05-09] MEDS: Ipratropium/Albuterol Neb 3 ML IH PRN ×3 (11:15→20:17)
[2021-05-09] MEDS ORDERED: 0.9 % Sodium Chloride 1,000 ML IV ONE (11:41)
[2021-05-09] MEDS: methylPREDNISolone 125 MG/2 ML VIAL IVP SCH ×2 (14:31→20:06)
[2021-05-09 20:52] LABS: BUN/Creatinine Ratio 19 (6-26); Blood Urea Nitrogen 18 mg/dL (8-23); Calcium 8.8 mg/dL (8.6-10.3); Carbon Dioxide 26 mEq/L (23-29); Chloride 96 mEq/L (98-107); Glucose 394 mg/dL (70-105); Osmolality,Calculated 290 (280-300); Potassium 4.5 mEq/L (3.5-5.1); Sodium 131 mEq/L (136-145); eGFR For African Americans > 60 (> 60); eGFR For Non-African Americans > 60 (> 60)
[2021-05-10] MEDS: methylPREDNISolone 125 MG/2 ML VIAL IVP SCH ×4 (03:46→21:43)
[2021-05-10] MEDS: *HR* Heparin 5,000 UNIT/ML VIAL SQ SCH ×3 (06:51→21:44)
[2021-05-10] MEDS: Ipratropium/Albuterol Neb 3 ML IH PRN ×4 (06:54→19:50)
[2021-05-10] MEDS: *HR* OxyCODONE/APAP 7.5/325 TABLET PO PRN ×3 (08:52→21:43)
[2021-05-10] MEDS: Isosorbide MONOnitrate (24 HR) 60 MG TAB.ER.24H PO SCH ×2 (08:53→21:42)
[2021-05-10] MEDS: Aspirin Enteric Coated 81 MG Tablet PO SCH (08:53)
[2021-05-10] MEDS: Metoprolol XL (24 HR) Succ 50 MG TAB.ER.24H PO SCH (08:54)
[2021-05-10] MEDS: Ascorbic Acid 500 MG TABLET PO SCH ×2 (08:54→21:42)
[2021-05-10] MEDS: Cholecalciferol (D-3) 1,000 UNIT (25MCG) TABLET PO SCH (08:54)
[2021-05-10] MEDS: Ranolazine 500 MG TAB.ER.12H PO SCH ×2 (08:54→21:42)
[2021-05-10] MEDS: Artificial Tears SOLN 15 ML BOTTLE BOTH EYES SCH ×2 (08:54→21:44)
[2021-05-10] MEDS: Gabapentin 300 MG CAPSULE PO SCH ×3 (08:54→21:43)
[2021-05-10] MEDS: Fluticasone Propionate Nasal 50 MCG/SPRAY BOTTLE NS SCH (08:54)
[2021-05-10] MEDS: Nicotine 14 MG PATCH.TD24 TD SCH (08:55)
[2021-05-10] MEDS: Insulin LISPRO 300 UNITS/3 ML VIAL SUBQ SCH ×4 (08:55→21:41)
[2021-05-10] MEDS: amLODIPine 5 MG TABLET PO SCH (08:55)
[2021-05-10] MEDS: Roflumilast [Daliresp] 500 MCG PO SCH (08:56)
[2021-05-10] MEDS ORDERED: levoFLOXacin 750 MG/150 ML 750 MG/150 ML BAG IVPB SCH ×2 (09:00)
[2021-05-10] MEDS ORDERED: IMMUNE GLOBULIN SQ SCH (09:00)
[2021-05-10] MEDS: Tiotropium 10 INH DOSE IH SCH (10:17)
[2021-05-10] MEDS: Budesonide/Formoterol 160/4.5 1 PUFF INH IH SCH ×2 (10:17→19:50)
[2021-05-10 11:24] LABS: Basophils # 0.1 K/mcL (0.0-0.2); Basophils % 0.2 %; Hematocrit 36.8 % (35.3-44.9); Hemoglobin 11.8 g/dL (11.5-15.4); Immature Granulocytes % 1.8 % (0-4); Lymphocytes # 0.4 K/mcL (0.6-4.6); Lymphocytes % 1.3 %; Mean Corpuscular HGB Conc 32.1 g/dL (31.6-35.5); Mean Corpuscular Hemoglobin 31.5 pg (28.0-33.3); Mean Corpuscular Volume 98.1 fL (83.0-100.0); Mean Platelet Volume 9.1 fL (9.4-12.4); Monocytes % 3.1 %; Neutrophils # 30.7 K/mcL (1.6-8.9); Platelet Count 332 K/mcL (140-400); Red Blood Count 3.75 M/mcL (3.82-4.97); Red Cell Distribution Width 20.3 % (11.5-14.5); Segmented Neutrophils % 93.6 %
[2021-05-10 11:44] LABS: BUN/Creatinine Ratio 28 (6-26); Blood Urea Nitrogen 21 mg/dL (8-23); Calcium 8.9 mg/dL (8.6-10.3); Carbon Dioxide 27 mEq/L (23-29); Chloride 99 mEq/L (98-107); Glucose 329 mg/dL (70-105); Osmolality,Calculated 294 (280-300); Potassium 4.2 mEq/L (3.5-5.1); Sodium 134 mEq/L (136-145); eGFR For African Americans > 60 (> 60); eGFR For Non-African Americans > 60 (> 60)
[2021-05-10 11:52] LABS: White Blood Count 32.8 K/mcL (4.3-11.1)
[2021-05-10] MEDS ORDERED: Insulin DETEMIR 100 UNIT/ML per UNIT SUBQ SCH (21:00)
[2021-05-11] MEDS: methylPREDNISolone 125 MG/2 ML VIAL IVP SCH ×3 (02:55→16:38)
[2021-05-11] MEDS: *HR* OxyCODONE/APAP 7.5/325 TABLET PO PRN (05:01)
[2021-05-11] MEDS: *HR* Heparin 5,000 UNIT/ML VIAL SQ SCH ×2 (05:04→15:40)
[2021-05-11 05:43] LABS: BUN/Creatinine Ratio 28 (6-26); Blood Urea Nitrogen 22 mg/dL (8-23); Calcium 8.4 mg/dL (8.6-10.3); Carbon Dioxide 23 mEq/L (23-29); Chloride 98 mEq/L (98-107); Glucose 442 mg/dL (70-105); Osmolality,Calculated 294 (280-300); Sodium 131 mEq/L (136-145); eGFR For African Americans > 60 (> 60); eGFR For Non-African Americans > 60 (> 60)
[2021-05-11 05:53] LABS: Basophils # 0.1 K/mcL (0.0-0.2); Basophils % 0.2 %; Hematocrit 35.6 % (35.3-44.9); Hemoglobin 11.4 g/dL (11.5-15.4); Immature Granulocytes % 2.2 % (0-4); Lymphocytes # 0.3 K/mcL (0.6-4.6); Lymphocytes % 0.9 %; Mean Corpuscular Hemoglobin 31.9 pg (28.0-33.3); Mean Corpuscular Volume 99.7 fL (83.0-100.0); Mean Platelet Volume 9.1 fL (9.4-12.4); Monocytes # 1.3 K/mcL (0.0-1.3); Monocytes % 4.1 %; Neutrophils # 29.3 K/mcL (1.6-8.9); Nucleated Red Blood Cells 0.1 /100 WBC (0); Platelet Count 293 K/mcL (140-400); Red Blood Count 3.57 M/mcL (3.82-4.97); Red Cell Distribution Width 19.9 % (11.5-14.5); Segmented Neutrophils % 92.6 %
[2021-05-11 05:56] LABS: White Blood Count 31.6 K/mcL (4.3-11.1)
[2021-05-11 05:57] LABS: Platelet Estimate Normal (Normal)
[2021-05-11] MEDS: Aspirin Enteric Coated 81 MG Tablet PO SCH (07:46)
[2021-05-11] MEDS: Metoprolol XL (24 HR) Succ 50 MG TAB.ER.24H PO SCH (07:46)
[2021-05-11] MEDS: Ranolazine 500 MG TAB.ER.12H PO SCH (07:46)
[2021-05-11] MEDS: Ascorbic Acid 500 MG TABLET PO SCH (07:46)
[2021-05-11] MEDS: Gabapentin 300 MG CAPSULE PO SCH ×2 (07:46→16:38)
[2021-05-11] MEDS: Cholecalciferol (D-3) 1,000 UNIT (25MCG) TABLET PO SCH (07:46)
[2021-05-11] MEDS: amLODIPine 5 MG TABLET PO SCH (07:48)
[2021-05-11] MEDS: Nicotine 14 MG PATCH.TD24 TD SCH (07:48)
[2021-05-11] MEDS: Isosorbide MONOnitrate (24 HR) 60 MG TAB.ER.24H PO SCH (07:48)
[2021-05-11] MEDS: Roflumilast [Daliresp] 500 MCG PO SCH (07:50)
[2021-05-11] MEDS: Artificial Tears SOLN 15 ML BOTTLE BOTH EYES SCH (07:53)
[2021-05-11] MEDS: Fluticasone Propionate Nasal 50 MCG/SPRAY BOTTLE NS SCH (07:54)
[2021-05-11] MEDS: Insulin LISPRO 300 UNITS/3 ML VIAL SUBQ SCH ×2 (07:55→11:46)
[2021-05-11] MEDS: Tiotropium 10 INH DOSE IH SCH ×2 (10:20→11:38)
[2021-05-11] MEDS: Budesonide/Formoterol 160/4.5 1 PUFF INH IH SCH ×2 (10:20→11:37)
[2021-05-11] MEDS ORDERED: Insulin DETEMIR 100 UNIT/ML per UNIT SUBQ STA (10:36)
[2021-05-11] MEDS: Ipratropium/Albuterol Neb 3 ML IH PRN ×2 (11:43→17:14)
[2021-05-11] MEDS ORDERED: levoFLOXacin 750 MG/150 ML 750 MG/150 ML BAG IVPB SCH (12:00)
[2021-05-11 17:44] VITALS: BP 147/78
[2021-05-11] MEDS ORDERED: Insulin DETEMIR 100 UNIT/ML X5UNITS SUBQ SCH (21:00)
[2021-05-13] MEDS ORDERED: [UNRECOGNIZED DRUG - OTHER] SQ SCH (09:00)
[2021-05-13] MEDS ORDERED: IMMUNE GLOBULIN 20 GM/200 ML SQ SCH (09:00)
== END 2021-05-11 17:37 | DRG 191 ==
LOC: EMEROOGRE 00:49 → INPGRE 02:32
PROVIDERS: ADMIT Family Medicine; ATTEND Family Medicine